=== PATIENT | male | born 1985 | race Two or more races ===

== ENCOUNTER 2019-02-28 18:23 | Inpatient (IN) | payer MEDICARE, OTHER ==
[~2019-02-28] VITALS: Ht 167.6 cm; Wt 71.7 kg
[2019-02-28] MEDS ORDERED: CARV25TA2 PO (18:47)
[2019-02-28] MEDS ORDERED: INSU100V36 SQ (18:47)
[2019-02-28] MEDS ORDERED: ATOR40TA PO (18:47)
[2019-02-28] MEDS ORDERED: CALC667T2 PO (18:47)
[2019-02-28] MEDS ORDERED: HYDR100T27 PO (18:47)
[2019-02-28] MEDS ORDERED: VIT1TABL46 PO (18:47)
[2019-02-28] MEDS ORDERED: FURO-151 PO (18:47)
[2019-02-28] MEDS ORDERED: INSU100I26 SQ (18:47)
[2019-02-28] MEDS ORDERED: CHOL100045 PO (18:47)
[2019-02-28] MEDS ORDERED: AMLO5TAB9 PO (18:47)
[2019-02-28] MEDS ORDERED: CITR30SO6 PO (18:47)
[2019-02-28] MEDS ORDERED: SERT100T PO (18:47)
[2019-02-28] MEDS ORDERED: PANT40TA4 PO (18:47)
[2019-02-28] MEDS ORDERED: SILD50TA PO (18:48)
[2019-02-28] MEDS ORDERED: ASPIRIN 81 MG TAB.CHEW PO ONE (19:15)
[2019-02-28] MEDS ORDERED: NITROGLYCERIN 0.4 MG/TAB BOTTLE SL ONE ×2 (19:15→19:16)
[2019-02-28 19:16] LABS: BASOPHILS % (AUTO) 0.3 % (0.0-2.0); EOSINOPHILS % (AUTO) 0.3 % (0.0-7.0); HEMATOCRIT 41.4 % (36.7-47.1); HEMOGLOBIN 13.5 g/dL (12.5-16.3); LYMPHOCYTES # (AUTO) 1.3 K/uL (20.0-40.0); LYMPHOCYTES % (AUTO) 16.9 % (20.5-51.5); MEAN CORPUSCULAR HGB CONC 33 g/dL (32.5-36.3); MEAN CORPUSCULAR VOLUME 89.3 fL (73.0-96.2); MONOCYTES # (AUTO) 0.3 K/uL (2.0-10.0); MONOCYTES % (AUTO) 4.5 % (0.0-11.0); NEUTROPHILS # (AUTO) 5.8 K/uL (1.8-8.9); PLATELET COUNT (AUTO) 144 K/uL (152-348); RED BLOOD CELL COUNT(AUTO) 4.64 MIL/uL (4.06-5.63); WHITE BLOOD COUNT (AUTO) 7.5 K/uL (3.6-10.2)
[2019-02-28] MEDS ORDERED: ASPIRIN 81 MG TAB.CHEW ONE (19:16)
[2019-02-28 19:21] LABS: CREATININE 5.2 mg/dL (0.6-1.3); POTASSIUM 4.7 mmol/L (3.5-5.1)
--- NOTE | 2019-02-28 19:30 | NUR ---
Dr. Diamond speaking with Dr. Jonathan Mosher.
--- NOTE | 2019-02-28 19:50 | NUR ---
Xray at bedside
--- NOTE | 2019-02-28 20:02 | NUR ---
Pt states he is unable to provide urine due to kidney failure, has dialysis once a year.
--- NOTE | 2019-02-28 20:28 | NUR ---
Called [facility] to page Yue Mcdonald NP.
--- NOTE | 2019-02-28 20:51 | NUR ---
Dr. Diamond on panel call with Yue Mcdonald NP. Pt accepted for admission to [facility], diagnosis: chestpain.
[2019-02-28] MEDS ORDERED: hydrALAZINE HCL 25 MG TABLET PO ONE (21:15)
[2019-02-28] MEDS ORDERED: Z GUARD REMEDY PASTE 57 GM TUBE TOP PRN (21:15)
[2019-02-28] MEDS ORDERED: ACETAMINOPHEN 325 MG TABLET PO PRN (21:15)
[2019-02-28] MEDS ORDERED: MAGNESIUM HYDROXIDE 30 ML LIQUID UDC PO PRN (21:15)
[2019-02-28] MEDS ORDERED: hydrALAZINE HCL 25 MG TABLET ONE (21:21)
--- NOTE | 2019-02-28 21:45 | NUR ---
Report given to Gricelda JEONG Tele.
--- NOTE | 2019-02-28 22:00 | NUR ---
RECEIVED PT IN ER VIA FLAQUITA.DX: HYPERTENSION CRISIS. UNDER THE CARE OF LIVIER MOORE NP. PT IN NO ACUTE DISTRESS. BELONGING LIST DONE. PT BLOOD PRESSURE HIGH. NOTIFY DR YARDAGE CONTROL CLERK. INTERMEDIATE ASSESSMENT DONE. SAFETY AND COMFORT PROVIDED. WILL CONTINUE TO MONITOR.
[2019-02-28 22:19] VITALS: BP 208/112
[2019-02-28] MEDS ORDERED: DEXTROSE 50% 50 ML DISP.SYRIN IV PRN (22:45)
[2019-02-28] MEDS: SEVELAMER CARBONATE 800 MG TABLET PO SCH (23:19)
[2019-02-28] MEDS: CARVEDILOL 25 MG TABLET PO SCH (23:19)
[2019-02-28 23:32] LABS: ALANINE AMINOTRANSFERASE 21 U/L (16-63); ALKALINE PHOSPHATASE 128 U/L (50-136); ASPARTATE AMINOTRANSFERASE 13 U/L (15-37); BILIRUBIN,DIRECT 0.1 mg/dL (0.0-0.2); BILIRUBIN,TOTAL 0.3 mg/dL (0.2-1.0); TOTAL PROTEIN, SERUM 5.7 g/dL (6.4-8.2)
[2019-02-28 23:41] LABS: ACETAMINOPHEN < 2.0 ug/mL (10-30)
[2019-03-01] VITALS (70 sets, daily range): BP systolic 125–213; BP diastolic 59–119
--- NOTE | 2019-03-01 00:15 | NUR ---
PT TRANSFERRED TO CCU. PT RECENT BLOOD PRESSURE WAS 201/100 AND PULSE RATE 76. LIVIER MOORE BUS MECHANIC NOTIFIED. ORDERED CARDENE DRIP. PT IN NO ACUTE DISTRESS. IV INTACT. SAFETY AND COMFORT PROVIDED.
[2019-03-01] MEDS: MORPHINE SULFATE 2 MG/1 ML DISP.SYRIN IV PRN ×3 (01:09→08:21)
[2019-03-01] MEDS ORDERED: NICARDIPINE IN NS 200 ML IV ONE (01:20)
[2019-03-01] MEDS: NICARDIPINE IN NS 200 ML IV PRN ×6 (01:23→18:59)
--- NOTE | 2019-03-01 01:51 | NUR ---
RECEIVED PT FROM [facility] VIA BED, ALERT & ORIENTED X4. R EYE DRSG INTACT & DRY. BP-185/108, WILL START CARDENE DRIP ORDERED. HEP LOCK INTACT & PATENT ON R HAND. ON RM AIR W/ O2 SAT OF 98%. C-SCOPE SR. KEPT HOB ELEVATED 45 DEGREES.
[2019-03-01] MEDS: HYDROCODONE/APAP 5-325MG TABLET PO PRN ×4 (02:32→18:42)
[2019-03-01] MEDS ORDERED: HYDROMORPHONE 1 MG/1 ML DISP.SYRIN IV STA ×2 (03:18→06:26)
--- NOTE | 2019-03-01 03:18 | NUR ---
CALLED Bhupendra DENNEY RE: INCREASED PAIN OF R EYE, SURGICAL SITE W/ ORDER.
--- NOTE | 2019-03-01 04:02 | NUR ---
PT. DOZING AFTER DILAUDID 0.5MG GIVEN.
--- NOTE | 2019-03-01 06:26 | NUR ---
CALLED Bhupendra LOPEZ FOR PAIN OF R EYE W/ ORDER. DILAUDID 0.5MG IVP GIVEN ORDERED.
[2019-03-01 06:35] LABS: BASOPHILS % (AUTO) 0.3 % (0.0-2.0); EOSINOPHILS % (AUTO) 0.3 % (0.0-7.0); HEMATOCRIT 39.4 % (36.7-47.1); HEMOGLOBIN 12.9 g/dL (12.5-16.3); LYMPHOCYTES # (AUTO) 0.9 K/uL (20.0-40.0); MEAN CORPUSCULAR HEMOGLOBIN 28.9 uug (23.8-33.4); MEAN CORPUSCULAR HGB CONC 33 g/dL (32.5-36.3); MEAN CORPUSCULAR VOLUME 88.1 fL (73.0-96.2); MONOCYTES # (AUTO) 0.4 K/uL (2.0-10.0); MONOCYTES % (AUTO) 4.6 % (0.0-11.0); NEUTROPHILS # (AUTO) 8.1 K/uL (1.8-8.9); NEUTROPHILS % (AUTO) 85.8 % (38.5-71.5); PLATELET COUNT (AUTO) 179 K/uL (152-348); RED BLOOD CELL COUNT(AUTO) 4.47 MIL/uL (4.06-5.63); WHITE BLOOD COUNT (AUTO) 9.5 K/uL (3.6-10.2)
[2019-03-01 06:45] LABS: CREATININE 6.1 mg/dL (0.6-1.3); MAGNESIUM 1.8 mg/dL (1.8-2.4); PHOSPHOROUS 4.1 mg/dL (2.5-4.9); POTASSIUM 5.3 mmol/L (3.5-5.1)
[2019-03-01] MEDS: PANTOPRAZOLE SODIUM 40 MG TABLET.DR PO SCH (06:46)
[2019-03-01] MEDS: BLOOD SUGAR DIAGNOSTIC 1 EACH STRIP VI SCH ×4 (08:24→20:37)
[2019-03-01] MEDS: CALCIUM ACETATE 667 MG CAPSULE PO SCH ×3 (08:36→16:59)
[2019-03-01] MEDS: hydrALAZINE HCL 50 MG TABLET PO SCH ×3 (08:38→16:49)
[2019-03-01] MEDS: SERTRALINE HCL 100 MG TABLET PO SCH (08:39)
[2019-03-01] MEDS: AMLODIPINE 5 MG TABLET PO SCH ×2 (08:39→16:50)
[2019-03-01] MEDS: CITRIC ACID/SODIUM CITRATE 30 ML SOLUTION PO SCH (08:40)
[2019-03-01] MEDS: INSULIN REGULAR, HUMAN 300 UNIT/3 ML VIAL SQ PRN ×3 (08:56→17:29)
[2019-03-01] MEDS: FUROSEMIDE 40 MG TABLET PO SCH (09:11)
[2019-03-01] MEDS: CHOLECALCIFEROL 1,000 UNIT TABLET PO SCH (09:12)
[2019-03-01] MEDS: SEVELAMER CARBONATE 800 MG TABLET PO SCH ×3 (09:13→17:00)
[2019-03-01] MEDS: CARVEDILOL 25 MG TABLET PO SCH ×2 (09:13→17:00)
--- NOTE | 2019-03-01 09:26 | NUR ---
Dr. Sultana here to see pt. Full report given. New orders received.
[2019-03-01] MEDS ORDERED: MORPHINE SULFATE 2 MG/1 ML DISP.SYRIN IV PRN (09:45)
[2019-03-01] MEDS: ONDANSETRON 4 MG/2 ML VIAL IV PRN ×2 (10:13→17:17)
[2019-03-01] MEDS: MORPHINE SULFATE 4 MG/1 ML DISP.SYRIN IV PRN ×3 (10:13→21:33)
[2019-03-01] MEDS ORDERED: TRAVOPROST 0.004% OPHT DROP 2.5 ML BOTTLE RIGHTEYE SCH (11:15)
[2019-03-01] MEDS ORDERED: HOME MED MISCELLANEOUS XX SCH (11:15)
[2019-03-01] MEDS: LATANOPROST OPHT DROP 2.5 ML BOTTLE RIGHTEYE SCH (12:52)
[2019-03-01] MEDS: BRIMONIDINE 0.2% OPHT DROP 10 ML BOTTLE RIGHTEYE SCH ×2 (13:10→16:57)
[2019-03-01] MEDS ORDERED: HYDROMORPHONE 2 MG/1 ML DISP.SYRIN IV ONE (13:15)
--- NOTE | 2019-03-01 13:32 | NUR ---
Spoke with AURE Turner on the telephone. Full report given. New orders received and carried out.
--- NOTE | 2019-03-01 14:10 | NUR ---
US tech here to see pt for 2D Echocardiogram.
[2019-03-01] MEDS ORDERED: OFLO5DRO RIGHTEYE (16:12)
[2019-03-01] MEDS ORDERED: PRED5DRO16 RIGHTEYE (16:14)
[2019-03-01] MEDS ORDERED: ATRO10DR RIGHTEYE (16:17)
[2019-03-01] MEDS ORDERED: LATA2.5D7 RIGHTEYE (16:18)
[2019-03-01] MEDS ORDERED: NETA2.5D RIGHTEYE (16:20)
[2019-03-01] MEDS ORDERED: BRIM10DR6 RIGHTEYE (16:21)
[2019-03-01] MEDS ORDERED: DORZ10DR13 RIGHTEYE (16:22)
[2019-03-01] MEDS: ATROPINE SULFATE 1% OPHT DROP 2 ML RIGHTEYE SCH (16:57)
[2019-03-01] MEDS: prednisoLONE ACET 1% OPHT DROP 5 ML BOTTLE RIGHTEYE SCH ×2 (16:58→20:49)
[2019-03-01] MEDS: OFLOXACIN 0.3% RIGHTEYE SCH ×2 (17:03→20:49)
[2019-03-01] MEDS: OPTH RIGHTEYE SCH ×2 (17:03→20:49)
--- NOTE | 2019-03-01 18:46 | NUR ---
Dr. Mosher (Eye MD) here to see pt. Full report given. Pt okay to remove eye patch and re-apply prn per .
--- NOTE | 2019-03-01 19:02 | NUR ---
cook chill technician here to see pt for dialysis treatment.
--- NOTE | 2019-03-01 20:00 | NUR ---
RECEIVED PT. ON HEMODIALYSIS IN PROGRESS. CARDENE DRIP IS OFF THIS TIME.WATCHED V/S CLOSELY. ON RM AIR W/ O2 SAT OF 98%. IV SITES ON R HAND & R FA INTACT & PATENT. PERMA CATH INTACT ON R UPPER CHEST. LFA AV SHUNT W/ GOOD BRUIT. DR MENCHACA EYE DOCTOR WAS HERE FEW MINS AGO. NOT IN ANY DISTRESS.
[2019-03-01] MEDS: ATORVASTATIN 40 MG TABLET PO SCH (20:48)
[2019-03-01] MEDS: DORZOLAMIDE/TIMOLOL OPHT DROP 10 ML BOTTLE RIGHTEYE SCH (20:50)
[2019-03-01] MEDS: NETARSUDIL 0.02% RIGHTEYE SCH (20:53)
--- NOTE | 2019-03-01 21:00 | NUR ---
HEMODIALYSIS DONE REMOVED 2500CC OF FLUIDS.
--- NOTE | 2019-03-01 22:03 | NUR ---
MEDICATED W/ MORPHINE SULFATE 4MG FOR R EYE PAIN SCALE 8/10.
--- NOTE | 2019-03-01 22:30 | NUR ---
MINIMAL ASSISTANCE GIVEN FOR HS CARE. ORAL CARE DONE. REPOSITIONED SELF FOR COMFORTS.
[2019-03-02] VITALS (58 sets, daily range): BP systolic 118–196; BP diastolic 53–113
[2019-03-02] MEDS: HYDROCODONE/APAP 5-325MG TABLET PO PRN ×2 (00:38→11:07)
[2019-03-02] MEDS: NICARDIPINE IN NS 200 ML IV PRN ×4 (00:43→11:10)
[2019-03-02] MEDS: MORPHINE SULFATE 4 MG/1 ML DISP.SYRIN IV PRN ×5 (03:16→22:28)
--- NOTE | 2019-03-02 04:30 | NUR ---
AM CARE DONE. ORAL CARE DONE. REQUIRES MINIMAL ASSISTANCE.
[2019-03-02] MEDS: ONDANSETRON 4 MG/2 ML VIAL IV PRN (05:11)
--- NOTE | 2019-03-02 05:11 | NUR ---
HAD AN EMESIS OF FOOD PARTICLES & NAUSEOUS, MEDICATED W/ ZOFRAN 4MG IVP ORDERED..
[2019-03-02 05:15] LABS: CREATININE 5.9 mg/dL (0.6-1.3); MAGNESIUM 1.7 mg/dL (1.8-2.4); PHOSPHOROUS 3.3 mg/dL (2.5-4.9); POTASSIUM 4.7 mmol/L (3.5-5.1)
[2019-03-02 05:17] LABS: BASOPHILS % (AUTO) 0.3 % (0.0-2.0); EOSINOPHILS % (AUTO) 0.4 % (0.0-7.0); HEMATOCRIT 40.7 % (36.7-47.1); HEMOGLOBIN 13.4 g/dL (12.5-16.3); LYMPHOCYTES % (AUTO) 11.5 % (20.5-51.5); MEAN CORPUSCULAR HEMOGLOBIN 28.8 uug (23.8-33.4); MEAN CORPUSCULAR HGB CONC 33 g/dL (32.5-36.3); MEAN CORPUSCULAR VOLUME 87.9 fL (73.0-96.2); MONOCYTES # (AUTO) 0.5 K/uL (2.0-10.0); MONOCYTES % (AUTO) 5.2 % (0.0-11.0); NEUTROPHILS # (AUTO) 7.4 K/uL (1.8-8.9); NEUTROPHILS % (AUTO) 82.6 % (38.5-71.5); PLATELET COUNT (AUTO) 159 K/uL (152-348); RED BLOOD CELL COUNT(AUTO) 4.63 MIL/uL (4.06-5.63)
--- NOTE | 2019-03-02 06:00 | NUR ---
RESTING QUITELY. NOT IN ANY DISTRESS.
[2019-03-02] MEDS: PANTOPRAZOLE SODIUM 40 MG TABLET.DR PO SCH (06:20)
[2019-03-02] MEDS: BLOOD SUGAR DIAGNOSTIC 1 EACH STRIP VI SCH ×4 (06:54→20:30)
[2019-03-02 07:09] LABS: HEPATITIS B SURFACE AB Reactive (.); HEPATITIS B SURFACE AG Negative (Negative)
[2019-03-02] MEDS: hydrALAZINE HCL 50 MG TABLET PO SCH ×3 (07:57→16:27)
[2019-03-02] MEDS: SEVELAMER CARBONATE 800 MG TABLET PO SCH ×3 (07:58→17:03)
[2019-03-02] MEDS: AMLODIPINE 5 MG TABLET PO SCH ×2 (07:58→16:28)
[2019-03-02] MEDS: CHOLECALCIFEROL 1,000 UNIT TABLET PO SCH (07:59)
[2019-03-02] MEDS: FUROSEMIDE 40 MG TABLET PO SCH (07:59)
[2019-03-02] MEDS: CALCIUM ACETATE 667 MG CAPSULE PO SCH ×3 (08:00→17:02)
[2019-03-02] MEDS: SERTRALINE HCL 100 MG TABLET PO SCH (08:00)
[2019-03-02] MEDS: CARVEDILOL 25 MG TABLET PO SCH ×2 (08:01→17:03)
[2019-03-02] MEDS: CITRIC ACID/SODIUM CITRATE 30 ML SOLUTION PO SCH (08:02)
[2019-03-02] MEDS: LATANOPROST OPHT DROP 2.5 ML BOTTLE RIGHTEYE SCH (08:07)
[2019-03-02] MEDS: DORZOLAMIDE/TIMOLOL OPHT DROP 10 ML BOTTLE RIGHTEYE SCH ×2 (08:08→20:13)
[2019-03-02] MEDS: prednisoLONE ACET 1% OPHT DROP 5 ML BOTTLE RIGHTEYE SCH ×4 (08:08→20:10)
[2019-03-02] MEDS: ATROPINE SULFATE 1% OPHT DROP 2 ML RIGHTEYE SCH ×2 (08:09→17:20)
[2019-03-02] MEDS: OPTH RIGHTEYE SCH ×4 (08:09→20:10)
[2019-03-02] MEDS: OFLOXACIN 0.3% RIGHTEYE SCH ×4 (08:09→20:10)
[2019-03-02] MEDS: BRIMONIDINE 0.2% OPHT DROP 10 ML BOTTLE RIGHTEYE SCH ×3 (08:09→17:21)
[2019-03-02] MEDS: INSULIN REGULAR, HUMAN 300 UNIT/3 ML VIAL SQ PRN ×4 (08:17→20:30)
[2019-03-02] MEDS ORDERED: LOSARTAN POTASSIUM 50 MG TABLET PO SCH (09:00)
--- NOTE | 2019-03-02 11:00 | NUR ---
Dr. Larry here to see pt. Full report given. New orders received.
--- NOTE | 2019-03-02 11:15 | NUR ---
AURE Mcdonald here to see pt. Full report given. No new orders received.
[2019-03-02] MEDS ORDERED: SODIUM CHLORIDE IV ONE (13:00)
[2019-03-02] MEDS ORDERED: NICARDIPINE IV ONE (13:00)
[2019-03-02] MEDS: CLONIDINE HCL 0.1 MG TABLET PO SCH ×2 (13:08→21:47)
[2019-03-02] MEDS: NORMAL SALINE IV PRN (13:59)
[2019-03-02] MEDS: NICARDIPINE HCL IV PRN (13:59)
[2019-03-02] MEDS: LOSARTAN POTASSIUM 50 MG TABLET PO SCH (16:27)
[2019-03-02] MEDS: ATORVASTATIN 40 MG TABLET PO SCH (20:10)
[2019-03-02] MEDS: NETARSUDIL 0.02% RIGHTEYE SCH (20:11)
--- NOTE | 2019-03-02 20:46 | NUR ---
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
--- NOTE | 2019-03-02 21:00 | NUR ---
due medication given and tolerated ,eye drops administered to the right eye . requested for sandwich he said he cannot take medication with empty stomach .off Cardene drip continue to monitor bp to keep sbp <160 mm/hg .fingerstick done and follow insulin sliding scale .
--- NOTE | 2019-03-02 22:36 | NUR ---
patient verbalized pain to his right eye and headache 8/10 given prn morphine . continue to monitor pain levels and advised to use the call forde . requested jello given 2 jellos .
[2019-03-03] VITALS (77 sets, daily range): BP systolic 125–191; BP diastolic 57–107
--- NOTE | 2019-03-03 | NUR ---
BP 163/88 HR 75 RR 18 given clonidine 0.1 mg po will continue to monitor bp .
--- NOTE | 2019-03-03 02:00 | NUR ---
186/101 map 140 ,started Cardene drip at 2.5 mg to titrate to keep sbp <160 mm/hg.
[2019-03-03] MEDS: NORMAL SALINE IV PRN ×2 (02:04→11:03)
[2019-03-03] MEDS: NICARDIPINE HCL IV PRN ×2 (02:04→11:03)
[2019-03-03] MEDS: MORPHINE SULFATE 4 MG/1 ML DISP.SYRIN IV PRN ×3 (02:10→10:43)
[2019-03-03] MEDS: CLONIDINE HCL 0.1 MG TABLET PO SCH ×3 (05:37→21:46)
[2019-03-03] MEDS: PANTOPRAZOLE SODIUM 40 MG TABLET.DR PO SCH (06:03)
[2019-03-03] MEDS: BLOOD SUGAR DIAGNOSTIC 1 EACH STRIP VI SCH ×4 (07:09→22:31)
[2019-03-03 07:32] LABS: BASOPHILS % (AUTO) 0.5 % (0.0-2.0); EOSINOPHILS % (AUTO) 0.5 % (0.0-7.0); HEMATOCRIT 36.9 % (36.7-47.1); LYMPHOCYTES # (AUTO) 1.5 K/uL (20.0-40.0); MEAN CORPUSCULAR HGB CONC 32 g/dL (32.5-36.3); MEAN CORPUSCULAR VOLUME 89.6 fL (73.0-96.2); MONOCYTES # (AUTO) 0.7 K/uL (2.0-10.0); MONOCYTES % (AUTO) 6.7 % (0.0-11.0); NEUTROPHILS # (AUTO) 7.5 K/uL (1.8-8.9); NEUTROPHILS % (AUTO) 77.3 % (38.5-71.5); PLATELET COUNT (AUTO) 135 K/uL (152-348); RED BLOOD CELL COUNT(AUTO) 4.12 MIL/uL (4.06-5.63); WHITE BLOOD COUNT (AUTO) 9.7 K/uL (3.6-10.2)
[2019-03-03 07:42] LABS: MAGNESIUM 1.6 mg/dL (1.8-2.4); POTASSIUM 5.6 mmol/L (3.5-5.1)
[2019-03-03 07:50] LABS: CREATININE 7.6 mg/dL (0.6-1.3)
[2019-03-03] MEDS: INSULIN REGULAR, HUMAN 300 UNIT/3 ML VIAL SQ PRN ×4 (08:04→22:34)
[2019-03-03] MEDS: hydrALAZINE HCL 50 MG TABLET PO SCH ×3 (08:12→16:41)
[2019-03-03] MEDS: AMLODIPINE 5 MG TABLET PO SCH (08:13)
[2019-03-03] MEDS: LOSARTAN POTASSIUM 50 MG TABLET PO SCH ×2 (08:13→16:40)
[2019-03-03] MEDS: FUROSEMIDE 40 MG TABLET PO SCH (08:14)
[2019-03-03] MEDS: CALCIUM ACETATE 667 MG CAPSULE PO SCH ×3 (08:14→17:24)
[2019-03-03] MEDS: SEVELAMER CARBONATE 800 MG TABLET PO SCH ×3 (08:14→17:24)
[2019-03-03] MEDS: CARVEDILOL 25 MG TABLET PO SCH ×2 (08:16→17:25)
[2019-03-03] MEDS: SERTRALINE HCL 100 MG TABLET PO SCH (08:16)
[2019-03-03] MEDS: CHOLECALCIFEROL 1,000 UNIT TABLET PO SCH (08:16)
[2019-03-03] MEDS: CITRIC ACID/SODIUM CITRATE 30 ML SOLUTION PO SCH (08:17)
[2019-03-03] MEDS: HYDROCODONE/APAP 5-325MG TABLET PO PRN (08:28)
--- NOTE | 2019-03-03 08:29 | NUR ---
c/o severe headache. scale 10. medicated with [place] tablet Addendum: 03/03/19 at 0829 by SARA REN RN Amended: Links added.
[2019-03-03] MEDS: DORZOLAMIDE/TIMOLOL OPHT DROP 10 ML BOTTLE RIGHTEYE SCH ×2 (08:55→22:37)
[2019-03-03] MEDS: BRIMONIDINE 0.2% OPHT DROP 10 ML BOTTLE RIGHTEYE SCH ×3 (08:55→16:42)
[2019-03-03] MEDS: ATROPINE SULFATE 1% OPHT DROP 2 ML RIGHTEYE SCH ×2 (08:56→16:42)
[2019-03-03] MEDS: LATANOPROST OPHT DROP 2.5 ML BOTTLE RIGHTEYE SCH (08:56)
[2019-03-03] MEDS: prednisoLONE ACET 1% OPHT DROP 5 ML BOTTLE RIGHTEYE SCH ×4 (08:57→22:36)
[2019-03-03] MEDS: OFLOXACIN 0.3% RIGHTEYE SCH ×4 (08:57→22:36)
[2019-03-03] MEDS: OPTH RIGHTEYE SCH ×4 (08:57→22:36)
--- NOTE | 2019-03-03 10:43 | NUR ---
medicated for c/o right frontal headache scale 01/04 Addendum: 03/03/19 at 1056 by SARA REN RN Amended: Links added.
--- NOTE | 2019-03-03 11:30 | NUR ---
seen by Dr Willson Cardiology. orders received. [facility] randallia dc/d. will start procrdia and will titrate cardene down as long as BP 160 and below Addendum: 03/03/19 at 1229 by SARA REN RN Amended: Links added. Addendum: 03/03/19 at 1230 by SARA REN RN Amended: Links added.
--- NOTE | 2019-03-03 12:00 | NUR ---
leonie 197, covered with 3 units humulin R SQ Addendum: 03/03/19 at 1230 by SARA REN RN Amended: Links added.
--- NOTE | 2019-03-03 13:00 | NUR ---
seen by AURE Weaver. orders received. Addendum: 03/03/19 at 1407 by SARA REN RN Amended: Links added.
[2019-03-03 13:25] LABS: HEPATITIS B SURFACE AB Reactive (.); HEPATITIS B SURFACE AG Negative (Negative)
--- NOTE | 2019-03-03 14:00 | NUR ---
luis m agrawal down to 2 mg/hr/ see iv speadsheet for clinical values Addendum: 03/03/19 at 1657 by SARA REN RN Amended: Links added.
[2019-03-03] MEDS: HYDROMORPHONE 2 MG/1 ML DISP.SYRIN IV PRN ×2 (14:17→22:40)
--- NOTE | 2019-03-03 14:18 | NUR ---
medicated with dilaudid 2mg IV. for c/o headache right frontal scale 12/05. Morphine was discontinued Addendum: 03/03/19 at 1418 by SARA REN RN Amended: Links added.
--- NOTE | 2019-03-03 14:46 | NUR ---
hemosialysis initiated. Addendum: 03/03/19 at 1446 by SARA REN RN Amended: Links added.
[2019-03-03] MEDS ORDERED: MAGNESIUM OXIDE 400 MG TABLET PO ONE (15:45)
--- NOTE | 2019-03-03 16:24 | NUR ---
leonie 161, covered with 3 units humulin R SQ Addendum: 03/03/19 at 1626 by SARA REN RN Amended: Links added.
--- NOTE | 2019-03-03 17:00 | NUR ---
hemodialysis completed. 3liters of fluids out. Addendum: 03/03/19 at 1755 by SARA REN RN Amended: Linda added. Addendum: 03/03/19 at 1814 by SARA REN RN Amended: Links added.
--- NOTE | 2019-03-03 17:19 | NUR ---
luis m back to 5mg/hr for persistent hypertension Addendum: 03/03/19 at 1719 by SARA REN RN Amended: Links added.
[2019-03-03] MEDS: ONDANSETRON 4 MG/2 ML VIAL IV PRN (17:33)
--- NOTE | 2019-03-03 17:33 | NUR ---
had 1 episode of emesis while eating dinner. medicated with zofran IV. bp 185/88. cardene at 5mg/hr Addendum: 03/03/19 at 1754 by SARA REN RN Amended: Links added. Addendum: 03/03/19 at 1755 by SARA REN RN Amended: Links added. Addendum: 03/03/19 at 1814 by SARA REN RN Amended: Links added.
--- NOTE | 2019-03-03 18:00 | NUR ---
sleeping post emesis. bp now 141/80. dakotaene down to 4 mh/hr Addendum: 03/03/19 at 1814 by SARA REN RN Amended: Links added.
--- NOTE | 2019-03-03 19:20 | NUR ---
Shift report given to Lisa Addendum: 03/03/19 at 1920 by SARA REN RN Amended: Links added.
[2019-03-03] MEDS ORDERED: SODIUM CHLORIDE IV ONE (20:00)
[2019-03-03] MEDS ORDERED: NICARDIPINE IV ONE (20:00)
[2019-03-03] MEDS: ATORVASTATIN 40 MG TABLET PO SCH (21:47)
[2019-03-03] MEDS: NETARSUDIL 0.02% RIGHTEYE SCH (22:37)
[2019-03-03] MEDS ORDERED: NIFEdipine XL 30 MG TABSR PO ONE (22:53)
[2019-03-03] MEDS: NIFEdipine XL 30 MG TABSR PO SCH (22:57)
[2019-03-04] VITALS (76 sets, daily range): BP systolic 120–171; BP diastolic 52–97
[2019-03-04] MEDS: NICARDIPINE HCL IV PRN ×2 (00:48→10:19)
[2019-03-04] MEDS: NORMAL SALINE IV PRN ×2 (00:48→10:19)
[2019-03-04] MEDS: HYDROMORPHONE 2 MG/1 ML DISP.SYRIN IV PRN ×5 (02:45→23:49)
[2019-03-04] MEDS: CLONIDINE HCL 0.1 MG TABLET PO SCH ×3 (06:26→22:07)
[2019-03-04] MEDS: PANTOPRAZOLE SODIUM 40 MG TABLET.DR PO SCH (06:26)
[2019-03-04] MEDS: BLOOD SUGAR DIAGNOSTIC 1 EACH STRIP VI SCH ×4 (07:58→22:20)
--- NOTE | 2019-03-04 08:00 | NUR ---
Report received from ADENIKE Gutierrez.Pt remains awake,alert.Remains on cardene gtt at 5mg/hrto keep SBP <160.Will continue to monitor.
[2019-03-04] MEDS: INSULIN REGULAR, HUMAN 300 UNIT/3 ML VIAL SQ PRN ×4 (08:07→22:23)
[2019-03-04 08:10] LABS: *BILIRUBIN,URIN NEGATIVE (NEGATIVE); *BLOOD, URINE 2+ (NEGATIVE); *CLARITY,URINE CLEAR (CLEAR); *COLOR,URINE YELLOW (YELLOW); *KETONES,URINE NEGATIVE (NEGATIVE); *UROBILINOGEN,URINE 0.2 E.U./dl (NORMAL); LEUKOCYTE ESTERASE ,URINE NEGATIVE (NEGATIVE); NITRITE, URINE NEGATIVE (NEGATIVE); PH,URINE 7.5 (5.0-8.0); UGLUCOSE TRACE (NEGATIVE)
[2019-03-04 08:18] LABS: BACTERIA,URINE FEW /HPF (NONE SEEN); RBC,URINE TNTC /HPF (0-3); SQUAMOUS EPITHELIAL CELL,UR NONE SEEN /HPF (NONE SEEN)
[2019-03-04 08:38] LABS: BASOPHILS # (AUTO) 0.1 K/uL (0.0-8.0); BASOPHILS % (AUTO) 0.6 % (0.0-2.0); EOSINOPHILS # (AUTO) 0.1 K/uL (0.0-0.7); EOSINOPHILS % (AUTO) 0.7 % (0.0-7.0); HEMATOCRIT 40.2 % (36.7-47.1); HEMOGLOBIN 13.1 g/dL (12.5-16.3); LYMPHOCYTES # (AUTO) 1.6 K/uL (20.0-40.0); LYMPHOCYTES % (AUTO) 15.3 % (20.5-51.5); MEAN CORPUSCULAR HGB CONC 33 g/dL (32.5-36.3); MEAN CORPUSCULAR VOLUME 89.3 fL (73.0-96.2); MONOCYTES # (AUTO) 0.7 K/uL (2.0-10.0); MONOCYTES % (AUTO) 6.9 % (0.0-11.0); NEUTROPHILS # (AUTO) 8.2 K/uL (1.8-8.9); NEUTROPHILS % (AUTO) 76.5 % (38.5-71.5); PLATELET COUNT (AUTO) 159 K/uL (152-348); RED BLOOD CELL COUNT(AUTO) 4.51 MIL/uL (4.06-5.63); WHITE BLOOD COUNT (AUTO) 10.7 K/uL (3.6-10.2)
[2019-03-04 08:49] LABS: MAGNESIUM 1.8 mg/dL (1.8-2.4); POTASSIUM 4.8 mmol/L (3.5-5.1)
[2019-03-04] MEDS: ONDANSETRON 4 MG/2 ML VIAL IV PRN (08:54)
[2019-03-04 08:56] LABS: CREATININE 7.7 mg/dL (0.6-1.3)
[2019-03-04] MEDS: hydrALAZINE HCL 50 MG TABLET PO SCH ×3 (08:59→17:30)
[2019-03-04] MEDS: LOSARTAN POTASSIUM 50 MG TABLET PO SCH (09:00)
--- NOTE | 2019-03-04 09:00 | NUR ---
Medicated for nausea with Zofran 4 mg IV.Medicated with Dilaudid 2 mg IV for pain in Right eye.Will continue to monitor.
[2019-03-04] MEDS: NIFEdipine XL 30 MG TABSR PO SCH (09:01)
[2019-03-04] MEDS: SERTRALINE HCL 100 MG TABLET PO SCH (09:02)
[2019-03-04] MEDS: CITRIC ACID/SODIUM CITRATE 30 ML SOLUTION PO SCH (09:03)
[2019-03-04] MEDS: SEVELAMER CARBONATE 800 MG TABLET PO SCH ×3 (09:03→17:34)
[2019-03-04] MEDS: CARVEDILOL 25 MG TABLET PO SCH ×2 (09:03→17:32)
[2019-03-04] MEDS: FUROSEMIDE 40 MG TABLET PO SCH ×2 (09:04→17:30)
[2019-03-04] MEDS: CALCIUM ACETATE 667 MG CAPSULE PO SCH ×3 (09:04→17:34)
[2019-03-04] MEDS: CHOLECALCIFEROL 1,000 UNIT TABLET PO SCH (09:05)
[2019-03-04] MEDS: prednisoLONE ACET 1% OPHT DROP 5 ML BOTTLE RIGHTEYE SCH ×4 (09:06→22:11)
[2019-03-04] MEDS: OPTH RIGHTEYE SCH ×4 (09:07→22:12)
[2019-03-04] MEDS: OFLOXACIN 0.3% RIGHTEYE SCH ×4 (09:07→22:12)
[2019-03-04] MEDS: ATROPINE SULFATE 1% OPHT DROP 2 ML RIGHTEYE SCH ×2 (09:07→17:35)
[2019-03-04] MEDS: DORZOLAMIDE/TIMOLOL OPHT DROP 10 ML BOTTLE RIGHTEYE SCH ×2 (09:07→22:10)
[2019-03-04] MEDS: BRIMONIDINE 0.2% OPHT DROP 10 ML BOTTLE RIGHTEYE SCH ×3 (09:08→17:37)
[2019-03-04] MEDS: LATANOPROST OPHT DROP 2.5 ML BOTTLE RIGHTEYE SCH (09:08)
[2019-03-04] MEDS ORDERED: NIFEdipine XL 60 MG TABSR PO ONE (10:30)
--- NOTE | 2019-03-04 10:30 | NUR ---
Seen,examined by pottery decorator .New orders received.
[2019-03-04] MEDS ORDERED: FUROSEMIDE 40 MG TABLET PO SCH (10:45)
[2019-03-04] MEDS: HYDROCODONE/APAP 5-325MG TABLET PO PRN (12:13)
[2019-03-04] MEDS ORDERED: SODIUM CHLORIDE IV ONE (19:00)
[2019-03-04] MEDS ORDERED: NICARDIPINE IV ONE (19:00)
--- NOTE | 2019-03-04 22:00 | NUR ---
Emily Mccray.Omero. at bedside: requested Cardene gtt off; only if necessary to restart.
[2019-03-04] MEDS: ATORVASTATIN 40 MG TABLET PO SCH (22:07)
[2019-03-04] MEDS: VALSARTAN 160 MG TABLET PO SCH (22:08)
[2019-03-04] MEDS: NETARSUDIL 0.02% RIGHTEYE SCH (22:11)
[2019-03-05] VITALS (26 sets, daily range): BP systolic 124–191; BP diastolic 47–94
[2019-03-05] MEDS: HYDROCODONE/APAP 5-325MG TABLET PO PRN ×2 (02:08→10:42)
[2019-03-05] MEDS: HYDROMORPHONE 2 MG/1 ML DISP.SYRIN IV PRN ×5 (03:49→23:22)
[2019-03-05 05:16] LABS: BASOPHILS % (AUTO) 0.5 % (0.0-2.0); EOSINOPHILS # (AUTO) 0.1 K/uL (0.0-0.7); EOSINOPHILS % (AUTO) 0.7 % (0.0-7.0); HEMATOCRIT 37.4 % (36.7-47.1); HEMOGLOBIN 12.2 g/dL (12.5-16.3); LYMPHOCYTES # (AUTO) 1.5 K/uL (20.0-40.0); LYMPHOCYTES % (AUTO) 16.7 % (20.5-51.5); MEAN CORPUSCULAR HEMOGLOBIN 28.7 uug (23.8-33.4); MEAN CORPUSCULAR HGB CONC 33 g/dL (32.5-36.3); MEAN CORPUSCULAR VOLUME 87.8 fL (73.0-96.2); MONOCYTES # (AUTO) 0.6 K/uL (2.0-10.0); MONOCYTES % (AUTO) 6.3 % (0.0-11.0); NEUTROPHILS % (AUTO) 75.8 % (38.5-71.5); PLATELET COUNT (AUTO) 160 K/uL (152-348); RED BLOOD CELL COUNT(AUTO) 4.26 MIL/uL (4.06-5.63); WHITE BLOOD COUNT (AUTO) 9.2 K/uL (3.6-10.2)
[2019-03-05] MEDS: NORMAL SALINE IV PRN ×2 (05:41→10:25)
[2019-03-05] MEDS: NICARDIPINE HCL IV PRN ×2 (05:41→10:25)
[2019-03-05] MEDS: CLONIDINE HCL 0.1 MG TABLET PO SCH ×3 (06:12→21:18)
[2019-03-05] MEDS: PANTOPRAZOLE SODIUM 40 MG TABLET.DR PO SCH (06:12)
[2019-03-05 06:28] LABS: MAGNESIUM 1.7 mg/dL (1.8-2.4); PHOSPHOROUS 4.6 mg/dL (2.5-4.9); POTASSIUM 5.1 mmol/L (3.5-5.1)
[2019-03-05 06:30] LABS: CREATININE 8.9 mg/dL (0.6-1.3)
--- NOTE | 2019-03-05 08:00 | NUR ---
AURE Mcdonald here to see pt. Full report given. No new orders received.
[2019-03-05] MEDS: hydrALAZINE HCL 50 MG TABLET PO SCH ×3 (08:16→17:17)
[2019-03-05] MEDS: CHOLECALCIFEROL 1,000 UNIT TABLET PO SCH (08:17)
[2019-03-05] MEDS: SERTRALINE HCL 100 MG TABLET PO SCH (08:17)
[2019-03-05] MEDS: CARVEDILOL 25 MG TABLET PO SCH ×2 (08:17→17:07)
[2019-03-05] MEDS: VALSARTAN 160 MG TABLET PO SCH ×2 (08:18→21:07)
[2019-03-05] MEDS: CITRIC ACID/SODIUM CITRATE 30 ML SOLUTION PO SCH (08:18)
[2019-03-05] MEDS: CALCIUM ACETATE 667 MG CAPSULE PO SCH ×3 (08:18→17:08)
[2019-03-05] MEDS: NIFEdipine XL 90 MG TABSR PO SCH (08:19)
[2019-03-05] MEDS: SEVELAMER CARBONATE 800 MG TABLET PO SCH ×3 (08:19→17:08)
[2019-03-05] MEDS: FUROSEMIDE 40 MG TABLET PO SCH ×2 (08:20→17:07)
[2019-03-05] MEDS: BLOOD SUGAR DIAGNOSTIC 1 EACH STRIP VI SCH ×4 (08:30→21:13)
[2019-03-05] MEDS: INSULIN REGULAR, HUMAN 300 UNIT/3 ML VIAL SQ PRN ×4 (08:32→21:14)
[2019-03-05] MEDS: OFLOXACIN 0.3% RIGHTEYE SCH ×4 (08:55→21:06)
[2019-03-05] MEDS: OPTH RIGHTEYE SCH ×4 (08:55→21:06)
[2019-03-05] MEDS: BRIMONIDINE 0.2% OPHT DROP 10 ML BOTTLE RIGHTEYE SCH ×3 (08:56→17:19)
[2019-03-05] MEDS: prednisoLONE ACET 1% OPHT DROP 5 ML BOTTLE RIGHTEYE SCH ×4 (08:56→21:07)
[2019-03-05] MEDS: LATANOPROST OPHT DROP 2.5 ML BOTTLE RIGHTEYE SCH ×2 (08:56→17:19)
[2019-03-05] MEDS: ATROPINE SULFATE 1% OPHT DROP 2 ML RIGHTEYE SCH ×2 (08:56→17:18)
[2019-03-05] MEDS: DORZOLAMIDE/TIMOLOL OPHT DROP 10 ML BOTTLE RIGHTEYE SCH ×2 (08:57→21:07)
[2019-03-05] MEDS ORDERED: NIFEdipine XL 30 MG TABSR PO SCH (09:00)
[2019-03-05] MEDS ORDERED: NICARDIPINE IV ONE (10:00)
[2019-03-05] MEDS ORDERED: SODIUM CHLORIDE IV ONE (10:00)
--- NOTE | 2019-03-05 18:23 | NUR ---
Dr. Carty (Pain MD) here to see pt. Full report given. New orders received.
--- NOTE | 2019-03-05 20:00 | NUR ---
dog control officer at bedside patient is schedule for HD today .patient aaaox4 maex4 . room air no respiratory distress noted ,breathing even and unlabored .off nicardipine drip . bp <160 mm/hg .will continue to monitor bp .
[2019-03-05] MEDS: ACETAMINOPHEN 325 MG TABLET PO SCH (21:05)
[2019-03-05] MEDS: ATORVASTATIN 40 MG TABLET PO SCH (21:05)
[2019-03-05] MEDS: NETARSUDIL 0.02% RIGHTEYE SCH (21:06)
--- NOTE | 2019-03-05 22:00 | NUR ---
3000 fluid removal from HD.patient tolerated the procedure .
[2019-03-05] MEDS: HYDROCODONE/APAP 10-325 MG TABLET PO PRN (22:01)
--- NOTE | 2019-03-05 23:00 | NUR ---
patient sister came and visited him brought food from home .
[2019-03-06] VITALS (89 sets, daily range): BP systolic 110–203; BP diastolic 68–110
[2019-03-06] MEDS: ONDANSETRON 4 MG/2 ML VIAL IV PRN ×2 (00:09→10:54)
--- NOTE | 2019-03-06 00:09 | NUR ---
patient called ,patient vomited about 500 ml of food particle and solid food undigested food given Zofran prn for n/v and ice chips .
--- NOTE | 2019-03-06 00:35 | NUR ---
bp 171/93 after he vomited will continue to monitor bp .
[2019-03-06] MEDS: NICARDIPINE HCL IV PRN ×4 (02:07→19:44)
[2019-03-06] MEDS: NORMAL SALINE IV PRN ×4 (02:07→19:44)
[2019-03-06] MEDS: HYDROCODONE/APAP 5-325MG TABLET PO PRN (02:14)
[2019-03-06] MEDS: ACETAMINOPHEN 325 MG TABLET PO SCH ×4 (02:15→17:46)
[2019-03-06] MEDS: HYDROMORPHONE 2 MG/1 ML DISP.SYRIN IV PRN ×5 (03:21→20:40)
[2019-03-06 05:29] LABS: MAGNESIUM 1.8 mg/dL (1.8-2.4); POTASSIUM 5.3 mmol/L (3.5-5.1)
[2019-03-06 05:46] LABS: CREATININE 7.7 mg/dL (0.6-1.3)
[2019-03-06 05:47] LABS: BASOPHILS # (AUTO) 0.1 K/uL (0.0-8.0); BASOPHILS % (AUTO) 0.6 % (0.0-2.0); EOSINOPHILS % (AUTO) 0.4 % (0.0-7.0); HEMATOCRIT 37.8 % (36.7-47.1); HEMOGLOBIN 12.3 g/dL (12.5-16.3); LYMPHOCYTES # (AUTO) 1.4 K/uL (20.0-40.0); LYMPHOCYTES % (AUTO) 12.6 % (20.5-51.5); MEAN CORPUSCULAR HEMOGLOBIN 28.7 uug (23.8-33.4); MEAN CORPUSCULAR HGB CONC 33 g/dL (32.5-36.3); MONOCYTES # (AUTO) 0.7 K/uL (2.0-10.0); MONOCYTES % (AUTO) 6.2 % (0.0-11.0); NEUTROPHILS # (AUTO) 8.8 K/uL (1.8-8.9); NEUTROPHILS % (AUTO) 80.2 % (38.5-71.5)
[2019-03-06] MEDS: CLONIDINE HCL 0.1 MG TABLET PO SCH ×2 (06:25→13:02)
[2019-03-06] MEDS: PANTOPRAZOLE SODIUM 40 MG TABLET.DR PO SCH (06:25)
[2019-03-06] MEDS: BLOOD SUGAR DIAGNOSTIC 1 EACH STRIP VI SCH ×4 (06:59→21:00)
[2019-03-06 07:28] LABS: PLATELET COUNT (AUTO) 162 K/uL (152-348)
--- NOTE | 2019-03-06 07:30 | NUR ---
Recieved pt lying in bed, awake , alert and orientedx3. Medicated with Dilaudid for c/o headache level 10. No nausea or vomiting. 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 Cornea is blood red and pupils non reactive to light and accommodation. Pt moves all extremeties without any problem. SBP is very labile. Right arm is swollen, IV site is patent with good blood return.
[2019-03-06] MEDS ORDERED: SODIUM CHLORIDE IV ONE (08:00)
[2019-03-06] MEDS ORDERED: NICARDIPINE IV ONE (08:00)
[2019-03-06] MEDS: HYDROCODONE/APAP 10-325 MG TABLET PO PRN ×2 (08:12→21:30)
[2019-03-06] MEDS: CALCIUM ACETATE 667 MG CAPSULE PO SCH ×3 (08:13→12:58)
[2019-03-06] MEDS: CARVEDILOL 25 MG TABLET PO SCH ×2 (08:13→17:44)
[2019-03-06] MEDS: SEVELAMER CARBONATE 800 MG TABLET PO SCH ×3 (08:14→12:58)
[2019-03-06] MEDS: FUROSEMIDE 40 MG TABLET PO SCH ×2 (09:19→17:44)
[2019-03-06] MEDS: CHOLECALCIFEROL 1,000 UNIT TABLET PO SCH (09:19)
[2019-03-06] MEDS: CITRIC ACID/SODIUM CITRATE 30 ML SOLUTION PO SCH (09:19)
[2019-03-06] MEDS: VALSARTAN 160 MG TABLET PO SCH ×2 (09:20→20:43)
[2019-03-06] MEDS: NIFEdipine XL 90 MG TABSR PO SCH (09:21)
[2019-03-06] MEDS: SERTRALINE HCL 100 MG TABLET PO SCH (09:21)
[2019-03-06] MEDS: BRIMONIDINE 0.2% OPHT DROP 10 ML BOTTLE RIGHTEYE SCH ×3 (09:23→17:44)
[2019-03-06] MEDS: prednisoLONE ACET 1% OPHT DROP 5 ML BOTTLE RIGHTEYE SCH ×4 (09:23→20:44)
[2019-03-06] MEDS: DORZOLAMIDE/TIMOLOL OPHT DROP 10 ML BOTTLE RIGHTEYE SCH ×2 (09:23→20:44)
[2019-03-06] MEDS: OFLOXACIN 0.3% RIGHTEYE SCH ×4 (09:24→20:45)
[2019-03-06] MEDS: OPTH RIGHTEYE SCH ×4 (09:24→20:45)
[2019-03-06] MEDS: ATROPINE SULFATE 1% OPHT DROP 2 ML RIGHTEYE SCH ×2 (09:27→17:44)
[2019-03-06] MEDS: hydrALAZINE HCL 50 MG TABLET PO SCH ×3 (09:27→17:43)
--- NOTE | 2019-03-06 11:00 | NUR ---
Pt c/o nausea with emeses moderate amount. Medicated with Zofran 4mg slow IVP.
[2019-03-06] MEDS: INSULIN REGULAR, HUMAN 300 UNIT/3 ML VIAL SQ PRN (13:09)
[2019-03-06] MEDS ORDERED: CLONIDINE HCL 0.1 MG TABLET PO SCH (14:00)
[2019-03-06] MEDS: CLONIDINE HCL 0.2 MG TABLET PO SCH ×2 (15:14→21:30)
--- NOTE | 2019-03-06 16:30 | NUR ---
Unable to use the accucheck machine at this time.
--- NOTE | 2019-03-06 18:00 | NUR ---
IVF on the right FA appears swollen and infiltrated. Midline IV access is inserted by the PICC line nurse as ordered.
--- NOTE | 2019-03-06 19:30 | NUR ---
rounds made patient in bed .aaox4, breathing even and unlabored on room air.on Cardene drip to follow protocol to keep sbp <160 mm/hg .continue to monitor v/s q15 minutes .refer to spreadsheet .
--- NOTE | 2019-03-06 20:40 | NUR ---
prn Dilaudid given c/o per patient request patient verbalized pain to the right eye and headache .see medication list .
[2019-03-06] MEDS: ATORVASTATIN 40 MG TABLET PO SCH (20:44)
[2019-03-06] MEDS: NETARSUDIL 0.02% RIGHTEYE SCH (20:46)
--- NOTE | 2019-03-06 21:00 | NUR ---
fingerstick not done machine not available in whole hospital .
[2019-03-07] VITALS (93 sets, daily range): BP systolic 120–188; BP diastolic 55–114
[2019-03-07] MEDS: NICARDIPINE HCL IV PRN ×5 (00:07→18:00)
[2019-03-07] MEDS: NORMAL SALINE IV PRN ×5 (00:07→18:00)
[2019-03-07] MEDS: HYDROMORPHONE 2 MG/1 ML DISP.SYRIN IV PRN ×6 (00:39→20:09)
[2019-03-07] MEDS: ACETAMINOPHEN 325 MG TABLET PO SCH ×3 (03:03→17:39)
[2019-03-07 05:12] LABS: BILIRUBIN,TOTAL 0.3 mg/dL (0.2-1.0); MAGNESIUM 1.6 mg/dL (1.8-2.4); PHOSPHOROUS 3.9 mg/dL (2.5-4.9); POTASSIUM 5.7 mmol/L (3.5-5.1); TOTAL PROTEIN, SERUM 5.3 g/dL (6.4-8.2)
[2019-03-07] MEDS: CLONIDINE HCL 0.2 MG TABLET PO SCH ×2 (06:15→13:49)
[2019-03-07] MEDS: PANTOPRAZOLE SODIUM 40 MG TABLET.DR PO SCH (06:22)
[2019-03-07] MEDS: HYDROCODONE/APAP 10-325 MG TABLET PO PRN (06:24)
--- NOTE | 2019-03-07 07:30 | NUR ---
Recieved pt sound asleep in bed but easily arousable. Pt is very pleasant, orientex3.
[2019-03-07] MEDS ORDERED: NICARDIPINE IV ONE (07:40)
[2019-03-07] MEDS ORDERED: SODIUM CHLORIDE IV ONE (07:40)
--- NOTE | 2019-03-07 08:00 | NUR ---
SBP is very labile. Cardene drip is infusing via right upper arm at 10mg/hr. HR is SR, no ectopy.
--- NOTE | 2019-03-07 08:00 | NUR ---
C/O headache and pain oh his right eye level 10. Meedicated with Dilauded 2mg slow IVP as ordered and pt gets relieved. Sleeping on and off. Right arm is still swollen +2-3, skin is warm to touch with good radial pulses. Elevated the rt arm on pillows.
[2019-03-07] MEDS: CALCIUM ACETATE 667 MG CAPSULE PO SCH ×3 (08:50→17:35)
[2019-03-07] MEDS: SEVELAMER CARBONATE 800 MG TABLET PO SCH ×3 (08:50→17:35)
[2019-03-07] MEDS: CARVEDILOL 25 MG TABLET PO SCH ×2 (08:51→17:36)
[2019-03-07] MEDS: hydrALAZINE HCL 50 MG TABLET PO SCH ×3 (08:52→17:00)
[2019-03-07] MEDS: prednisoLONE ACET 1% OPHT DROP 5 ML BOTTLE RIGHTEYE SCH ×4 (09:03→20:17)
[2019-03-07] MEDS: DORZOLAMIDE/TIMOLOL OPHT DROP 10 ML BOTTLE RIGHTEYE SCH ×2 (09:03→20:18)
[2019-03-07] MEDS: OPTH RIGHTEYE SCH ×4 (09:03→20:17)
[2019-03-07] MEDS: OFLOXACIN 0.3% RIGHTEYE SCH ×4 (09:03→20:17)
[2019-03-07] MEDS: ATROPINE SULFATE 1% OPHT DROP 2 ML RIGHTEYE SCH ×2 (09:03→17:03)
[2019-03-07] MEDS: BRIMONIDINE 0.2% OPHT DROP 10 ML BOTTLE RIGHTEYE SCH ×3 (09:03→17:02)
[2019-03-07] MEDS: LATANOPROST OPHT DROP 2.5 ML BOTTLE RIGHTEYE SCH (09:04)
[2019-03-07] MEDS: BLOOD SUGAR DIAGNOSTIC 1 EACH STRIP VI SCH ×4 (09:20→20:19)
--- NOTE | 2019-03-07 09:30 | NUR ---
Rea and examined by [id number] LIGHTING FIXTURES DECORATOR and informed him pf pt's swollen right arm with new order.
[2019-03-07] MEDS: CITRIC ACID/SODIUM CITRATE 30 ML SOLUTION PO SCH (09:45)
[2019-03-07] MEDS: SERTRALINE HCL 100 MG TABLET PO SCH (09:45)
[2019-03-07] MEDS: CHOLECALCIFEROL 1,000 UNIT TABLET PO SCH (09:45)
[2019-03-07] MEDS: NIFEdipine XL 90 MG TABSR PO SCH (09:46)
[2019-03-07] MEDS: VALSARTAN 160 MG TABLET PO SCH ×2 (09:46→20:16)
[2019-03-07] MEDS: FUROSEMIDE 40 MG TABLET PO SCH ×2 (09:46→17:00)
[2019-03-07 10:02] LABS: BASOPHILS % (AUTO) 0.6 % (0.0-2.0); EOSINOPHILS % (AUTO) 0.4 % (0.0-7.0); HEMATOCRIT 35.3 % (36.7-47.1); HEMOGLOBIN 11.4 g/dL (12.5-16.3); LYMPHOCYTES % (AUTO) 14.1 % (20.5-51.5); MEAN CORPUSCULAR HEMOGLOBIN 29.1 uug (23.8-33.4); MEAN CORPUSCULAR HGB CONC 32 g/dL (32.5-36.3); MEAN CORPUSCULAR VOLUME 89.7 fL (73.0-96.2); MONOCYTES # (AUTO) 0.7 K/uL (2.0-10.0); MONOCYTES % (AUTO) 9.5 % (0.0-11.0); NEUTROPHILS # (AUTO) 5.5 K/uL (1.8-8.9); NEUTROPHILS % (AUTO) 75.4 % (38.5-71.5); PLATELET COUNT (AUTO) 126 K/uL (152-348); RED BLOOD CELL COUNT(AUTO) 3.94 MIL/uL (4.06-5.63); WHITE BLOOD COUNT (AUTO) 7.2 K/uL (3.6-10.2)
[2019-03-07] MEDS: INSULIN REGULAR, HUMAN 300 UNIT/3 ML VIAL SQ PRN (10:10)
--- NOTE | 2019-03-07 11:30 | NUR ---
Unable to do accu check, machine is down. Pt eating poorly.
[2019-03-07] MEDS: MAGNESIUM SULFATE/D5W 100 ML IV SCH ×2 (12:31→13:51)
[2019-03-07] MEDS: DOXAZOSIN 2 MG TABLET PO SCH ×2 (12:32→20:17)
[2019-03-07] MEDS: ONDANSETRON 4 MG/2 ML VIAL IV PRN (12:36)
--- NOTE | 2019-03-07 14:00 | NUR ---
Pt feels nauseus and has small emesis. Medicated with Zofran 4mg slow IVP
--- NOTE | 2019-03-07 14:50 | NUR ---
Venous doppler on the right arm done at the bedside as ordered.
--- NOTE | 2019-03-07 15:20 | NUR ---
Notified Ministerio LOONEY of pts Duplex exam. No orders made.
--- NOTE | 2019-03-07 17:00 | NUR ---
Blood pressure medications not given because pt is going to have a HD at 1800.
--- NOTE | 2019-03-07 18:10 | NUR ---
Brian and Ania refused by pt, feeling nauseous. HD is started. Cardene drip in progress at 5mg/hr. SBP is holding.
--- NOTE | 2019-03-07 20:00 | NUR ---
tolerated HEMODIALYSIS with fluid removal of 3000 ml .
[2019-03-07] MEDS: ATORVASTATIN 40 MG TABLET PO SCH (20:16)
[2019-03-07] MEDS: NETARSUDIL 0.02% RIGHTEYE SCH (20:18)
[2019-03-07] MEDS: CLONIDINE HCL 0.3 MG TABLET PO SCH (21:14)
[2019-03-07] MEDS ORDERED: CLONIDINE HCL 0.2 MG TABLET PO SCH (22:00)
--- NOTE | 2019-03-07 23:30 | NUR ---
patient wants to bath self provided . soap and water and wash cloth patient able to cleaned self changed soiled linens and gown . oral care done by patient .
[2019-03-08] VITALS (90 sets, daily range): BP systolic 117–222; BP diastolic 38–132
--- NOTE | 2019-03-08 | NUR ---
patient still bathing self at bedside provided warm water and wash cloth and oral care kit .
--- NOTE | 2019-03-08 | NUR ---
given pain medication as requested Dilaudid and given Zofran for n/v. see emar .
[2019-03-08] MEDS: ONDANSETRON 4 MG/2 ML VIAL IV PRN ×2 (00:44→16:20)
[2019-03-08] MEDS: HYDROMORPHONE 2 MG/1 ML DISP.SYRIN IV PRN ×6 (00:44→21:57)
[2019-03-08] MEDS: NICARDIPINE HCL IV PRN ×6 (00:56→23:57)
[2019-03-08] MEDS: NORMAL SALINE IV PRN ×6 (00:56→23:57)
[2019-03-08] MEDS: ACETAMINOPHEN 325 MG TABLET PO SCH ×3 (02:15→18:10)
[2019-03-08 05:12] LABS: BASOPHILS % (AUTO) 0.6 % (0.0-2.0); EOSINOPHILS % (AUTO) 0.1 % (0.0-7.0); HEMATOCRIT 34.1 % (36.7-47.1); HEMOGLOBIN 11.2 g/dL (12.5-16.3); LYMPHOCYTES # (AUTO) 0.9 K/uL (20.0-40.0); LYMPHOCYTES % (AUTO) 13.8 % (20.5-51.5); MEAN CORPUSCULAR HEMOGLOBIN 28.6 uug (23.8-33.4); MEAN CORPUSCULAR HGB CONC 33 g/dL (32.5-36.3); MEAN CORPUSCULAR VOLUME 87.1 fL (73.0-96.2); MONOCYTES # (AUTO) 0.6 K/uL (2.0-10.0); MONOCYTES % (AUTO) 8.9 % (0.0-11.0); NEUTROPHILS # (AUTO) 5.1 K/uL (1.8-8.9); NEUTROPHILS % (AUTO) 76.6 % (38.5-71.5); PLATELET COUNT (AUTO) 115 K/uL (152-348); RED BLOOD CELL COUNT(AUTO) 3.92 MIL/uL (4.06-5.63); WHITE BLOOD COUNT (AUTO) 6.7 K/uL (3.6-10.2)
[2019-03-08 05:44] LABS: MAGNESIUM 2.1 mg/dL (1.8-2.4); PHOSPHOROUS 3.9 mg/dL (2.5-4.9); POTASSIUM 5.5 mmol/L (3.5-5.1)
[2019-03-08 05:50] LABS: CREATININE 8.1 mg/dL (0.6-1.3)
[2019-03-08] MEDS: CLONIDINE HCL 0.3 MG TABLET PO SCH ×3 (06:05→21:56)
[2019-03-08] MEDS: PANTOPRAZOLE SODIUM 40 MG TABLET.DR PO SCH (06:05)
--- NOTE | 2019-03-08 06:50 | NUR ---
SPOKED TO PRATIMA FORMAN WITH REGARDS TO AM LABS BMP K+ 5.5 AND BUN AND CREATININE WITH NO NEW ORDERS .
[2019-03-08] MEDS ORDERED: SODIUM CHLORIDE IV ONE (07:25)
[2019-03-08] MEDS ORDERED: NICARDIPINE IV ONE (07:25)
[2019-03-08] MEDS: BLOOD SUGAR DIAGNOSTIC 1 EACH STRIP VI SCH ×4 (07:47→20:35)
[2019-03-08] MEDS: hydrALAZINE HCL 50 MG TABLET PO SCH ×3 (08:23→17:40)
[2019-03-08] MEDS: CALCIUM ACETATE 667 MG CAPSULE PO SCH ×3 (08:24→18:08)
[2019-03-08] MEDS: NIFEdipine XL 90 MG TABSR PO SCH (08:25)
[2019-03-08] MEDS: CHOLECALCIFEROL 1,000 UNIT TABLET PO SCH (08:25)
[2019-03-08] MEDS: SERTRALINE HCL 100 MG TABLET PO SCH (08:25)
[2019-03-08] MEDS: CITRIC ACID/SODIUM CITRATE 30 ML SOLUTION PO SCH (08:26)
[2019-03-08] MEDS: SEVELAMER CARBONATE 800 MG TABLET PO SCH ×3 (08:26→18:10)
[2019-03-08] MEDS: CARVEDILOL 25 MG TABLET PO SCH ×2 (08:27→18:08)
[2019-03-08] MEDS: VALSARTAN 160 MG TABLET PO SCH ×2 (08:27→20:23)
[2019-03-08] MEDS: FUROSEMIDE 40 MG TABLET PO SCH ×2 (08:27→17:34)
[2019-03-08] MEDS: OPTH RIGHTEYE SCH ×4 (08:28→20:27)
[2019-03-08] MEDS: prednisoLONE ACET 1% OPHT DROP 5 ML BOTTLE RIGHTEYE SCH ×4 (08:28→20:26)
[2019-03-08] MEDS: OFLOXACIN 0.3% RIGHTEYE SCH ×4 (08:28→20:27)
[2019-03-08] MEDS: BRIMONIDINE 0.2% OPHT DROP 10 ML BOTTLE RIGHTEYE SCH ×3 (08:29→17:38)
[2019-03-08] MEDS: DORZOLAMIDE/TIMOLOL OPHT DROP 10 ML BOTTLE RIGHTEYE SCH ×2 (08:29→20:27)
[2019-03-08] MEDS: LATANOPROST OPHT DROP 2.5 ML BOTTLE RIGHTEYE SCH (08:29)
[2019-03-08] MEDS: ATROPINE SULFATE 1% OPHT DROP 2 ML RIGHTEYE SCH ×2 (08:30→17:57)
--- NOTE | 2019-03-08 10:30 | NUR ---
Cardiology services, Dr. Lorrie Valderrama in the unit to see and examine patient full report given orders received and implemented, see order hx.
[2019-03-08] MEDS: INSULIN REGULAR, HUMAN 300 UNIT/3 ML VIAL SQ PRN ×3 (11:17→20:37)
[2019-03-08] MEDS: MINOXIDIL 2.5 MG TABLET PO SCH ×2 (12:13→20:25)
--- NOTE | 2019-03-08 13:55 | NUR ---
Nephrology services, Dr. Marquez in the unit to see and examine patient. See order hx.
[2019-03-08] MEDS: HYDROCODONE/APAP 10-325 MG TABLET PO PRN (15:06)
--- NOTE | 2019-03-08 16:23 | NUR ---
Mook Rodriguez in the unit to see and examine patient. At this time patient with an episode of nausea and vomiting.
--- NOTE | 2019-03-08 20:00 | NUR ---
RECEIVED PT ALERT & ORIENTED X4, DENIES PAIN THIS TIME. ON RM AIR W/ O2 SAT OF 98%. ON CARDENE DRIP @ 3MG/HR VIA WAI MIDLINE. NOT IN ANY DISTRESS.
[2019-03-08] MEDS: DOXAZOSIN 2 MG TABLET PO SCH (20:24)
[2019-03-08] MEDS: ATORVASTATIN 40 MG TABLET PO SCH (20:26)
[2019-03-08] MEDS: NETARSUDIL 0.02% RIGHTEYE SCH (20:26)
--- NOTE | 2019-03-08 23:00 | NUR ---
REFUSED HS CARE. REPOSITIONED SELF.
[2019-03-09] VITALS (61 sets, daily range): BP systolic 78–205; BP diastolic 43–93
[2019-03-09] MEDS: ACETAMINOPHEN 325 MG TABLET PO SCH ×3 (03:28→18:01)
[2019-03-09] MEDS: HYDROMORPHONE 2 MG/1 ML DISP.SYRIN IV PRN ×5 (03:38→22:20)
--- NOTE | 2019-03-09 04:00 | NUR ---
refused am care.
[2019-03-09] MEDS: CLONIDINE HCL 0.3 MG TABLET PO SCH ×3 (05:24→22:16)
[2019-03-09 05:26] LABS: BASOPHILS # (AUTO) 0.1 K/uL (0.0-8.0); BASOPHILS % (AUTO) 0.8 % (0.0-2.0); EOSINOPHILS % (AUTO) 0.5 % (0.0-7.0); HEMATOCRIT 32.9 % (36.7-47.1); HEMOGLOBIN 10.7 g/dL (12.5-16.3); LYMPHOCYTES # (AUTO) 1.3 K/uL (20.0-40.0); LYMPHOCYTES % (AUTO) 19.2 % (20.5-51.5); MEAN CORPUSCULAR HEMOGLOBIN 28.3 uug (23.8-33.4); MEAN CORPUSCULAR HGB CONC 32 g/dL (32.5-36.3); MEAN CORPUSCULAR VOLUME 87.3 fL (73.0-96.2); MONOCYTES # (AUTO) 0.6 K/uL (2.0-10.0); MONOCYTES % (AUTO) 9.2 % (0.0-11.0); NEUTROPHILS # (AUTO) 4.8 K/uL (1.8-8.9); NEUTROPHILS % (AUTO) 70.3 % (38.5-71.5); PLATELET COUNT (AUTO) 115 K/uL (152-348); RED BLOOD CELL COUNT(AUTO) 3.77 MIL/uL (4.06-5.63); WHITE BLOOD COUNT (AUTO) 6.8 K/uL (3.6-10.2)
[2019-03-09 05:47] LABS: PHOSPHOROUS 4.2 mg/dL (2.5-4.9); POTASSIUM 5.7 mmol/L (3.5-5.1)
[2019-03-09 06:10] LABS: CREATININE 9.4 mg/dL (0.6-1.3)
[2019-03-09] MEDS: PANTOPRAZOLE SODIUM 40 MG TABLET.DR PO SCH (06:47)
--- NOTE | 2019-03-09 07:30 | NUR ---
Report received from ADENIKE Hicks.Pt remains awake,alert.HD in progress.Pt remains on cardene gtt at 5mg/hr to maintain SBP below 160.Will continue to monitor.
[2019-03-09] MEDS: BLOOD SUGAR DIAGNOSTIC 1 EACH STRIP VI SCH ×4 (09:18→20:13)
[2019-03-09] MEDS: NORMAL SALINE IV PRN (09:19)
[2019-03-09] MEDS: NICARDIPINE HCL IV PRN (09:19)
[2019-03-09] MEDS: FUROSEMIDE 40 MG TABLET PO SCH ×2 (09:40→17:55)
[2019-03-09] MEDS: VALSARTAN 160 MG TABLET PO SCH ×2 (09:41→20:21)
[2019-03-09] MEDS: MINOXIDIL 2.5 MG TABLET PO SCH ×2 (09:42→20:29)
[2019-03-09] MEDS: SERTRALINE HCL 100 MG TABLET PO SCH (09:42)
[2019-03-09] MEDS: CARVEDILOL 25 MG TABLET PO SCH ×2 (09:43→17:50)
[2019-03-09] MEDS: CHOLECALCIFEROL 1,000 UNIT TABLET PO SCH (09:43)
[2019-03-09] MEDS: SEVELAMER CARBONATE 800 MG TABLET PO SCH ×3 (09:44→17:50)
[2019-03-09] MEDS: CITRIC ACID/SODIUM CITRATE 30 ML SOLUTION PO SCH (09:44)
[2019-03-09] MEDS: CALCIUM ACETATE 667 MG CAPSULE PO SCH ×3 (09:47→17:51)
[2019-03-09] MEDS: NIFEdipine XL 90 MG TABSR PO SCH (09:48)
[2019-03-09] MEDS: hydrALAZINE HCL 50 MG TABLET PO SCH ×3 (09:50→18:01)
[2019-03-09] MEDS: ATROPINE SULFATE 1% OPHT DROP 2 ML RIGHTEYE SCH ×2 (09:51→17:53)
[2019-03-09] MEDS: BRIMONIDINE 0.2% OPHT DROP 10 ML BOTTLE RIGHTEYE SCH ×3 (09:51→17:56)
[2019-03-09] MEDS: prednisoLONE ACET 1% OPHT DROP 5 ML BOTTLE RIGHTEYE SCH ×4 (09:52→20:28)
[2019-03-09] MEDS: DORZOLAMIDE/TIMOLOL OPHT DROP 10 ML BOTTLE RIGHTEYE SCH ×2 (09:52→20:29)
[2019-03-09] MEDS: LATANOPROST OPHT DROP 2.5 ML BOTTLE RIGHTEYE SCH (09:53)
[2019-03-09] MEDS: OPTH RIGHTEYE SCH ×3 (09:55→17:52)
[2019-03-09] MEDS: OFLOXACIN 0.3% RIGHTEYE SCH ×3 (09:55→17:52)
[2019-03-09] MEDS ORDERED: MINERAL OIL FLEET ENEMA 133 ML BOTTLE RC PRN (10:45)
[2019-03-09] MEDS ORDERED: MIRALAX 17 GM POWD.PACK PO PRN (10:45)
[2019-03-09] MEDS: INSULIN REGULAR, HUMAN 300 UNIT/3 ML VIAL SQ PRN ×3 (14:34→20:16)
--- NOTE | 2019-03-09 18:49 | NUR ---
Pt c/o pain at Right eye.Medicated with Dilaudid 2 mg IV as ordered.Cardene gtt is off.will continue to monitor.Seen,examined by .
--- NOTE | 2019-03-09 20:00 | NUR ---
RECEIVED PT. ALERT & ORIENTED X4. MIDLINE INTACT & PATENT ON WAI. DENIES PAIN. NOT IN NAY DISTRESS.
--- NOTE | 2019-03-09 20:00 | NUR ---
RECEIVED PT RESPONDING TO DEEP PAINFUL STIMULI. TRACH TO VENT W/ SETTINGS OF AC-12, TV-500, FIO2-50%, PEEP-+5 W/ O2 SAT OF 99%. IVF NS @ 80CC/HR. ON LEVOPHED DRIP @ 18CC/HR VIA TLC ON LEFT SUBCLAVIAN. G-TUBE INTACT & CLAMPED.SUCTIONED VIA TRACH & OROPHARYNGEALLY W/ THICK WHITISH MODERATE AMT. OF MUCOUS. REPOSITIONED ON HER SIDE W/ HOB ELEVATED. Addendum: 03/10/19 at 0153 by PAMELA VALENTIN RN CHARTING IS ERROR.
[2019-03-09] MEDS ORDERED: NICARDIPINE IV ONE (20:18)
[2019-03-09] MEDS ORDERED: SODIUM CHLORIDE IV ONE (20:18)
[2019-03-09] MEDS: ATORVASTATIN 40 MG TABLET PO SCH (20:20)
[2019-03-09] MEDS: DOXAZOSIN 2 MG TABLET PO SCH (20:20)
[2019-03-09] MEDS: NETARSUDIL 0.02% RIGHTEYE SCH (20:28)
[2019-03-09] MEDS: OFLOXACIN OPTH RIGHTEYE SCH (21:00)
--- NOTE | 2019-03-09 21:00 | NUR ---
REFUSED HS CARE.
[2019-03-10] VITALS (18 sets, daily range): BP systolic 96–166; BP diastolic 54–95
[2019-03-10] MEDS: ACETAMINOPHEN 325 MG TABLET PO SCH ×3 (02:53→17:12)
[2019-03-10] MEDS: HYDROMORPHONE 2 MG/1 ML DISP.SYRIN IV PRN ×5 (02:58→22:40)
[2019-03-10] MEDS: HYDROCODONE/APAP 10-325 MG TABLET PO PRN (04:49)
[2019-03-10 05:03] LABS: BASOPHILS # (AUTO) 0.1 K/uL (0.0-8.0); BASOPHILS % (AUTO) 0.9 % (0.0-2.0); EOSINOPHILS % (AUTO) 0.5 % (0.0-7.0); HEMATOCRIT 32.2 % (36.7-47.1); HEMOGLOBIN 10.4 g/dL (12.5-16.3); LYMPHOCYTES # (AUTO) 1.2 K/uL (20.0-40.0); LYMPHOCYTES % (AUTO) 19.8 % (20.5-51.5); MEAN CORPUSCULAR HEMOGLOBIN 28.2 uug (23.8-33.4); MEAN CORPUSCULAR HGB CONC 32 g/dL (32.5-36.3); MEAN CORPUSCULAR VOLUME 87.4 fL (73.0-96.2); MONOCYTES # (AUTO) 0.5 K/uL (2.0-10.0); MONOCYTES % (AUTO) 8.3 % (0.0-11.0); NEUTROPHILS # (AUTO) 4.4 K/uL (1.8-8.9); NEUTROPHILS % (AUTO) 70.5 % (38.5-71.5); PLATELET COUNT (AUTO) 108 K/uL (152-348); RED BLOOD CELL COUNT(AUTO) 3.68 MIL/uL (4.06-5.63); WHITE BLOOD COUNT (AUTO) 6.3 K/uL (3.6-10.2)
--- NOTE | 2019-03-10 05:08 | NUR ---
REFUSED AM CARE. QUE NEFF REMAINS OFF.
[2019-03-10 05:14] LABS: MAGNESIUM 1.7 mg/dL (1.8-2.4); PHOSPHOROUS 3.6 mg/dL (2.5-4.9); POTASSIUM 5.2 mmol/L (3.5-5.1)
[2019-03-10] MEDS: CLONIDINE HCL 0.3 MG TABLET PO SCH ×3 (05:46→22:26)
[2019-03-10 06:08] LABS: CREATININE 7.5 mg/dL (0.6-1.3)
[2019-03-10] MEDS: PANTOPRAZOLE SODIUM 40 MG TABLET.DR PO SCH (06:29)
[2019-03-10] MEDS: BLOOD SUGAR DIAGNOSTIC 1 EACH STRIP VI SCH ×4 (08:06→20:43)
[2019-03-10] MEDS: CHOLECALCIFEROL 1,000 UNIT TABLET PO SCH (08:23)
[2019-03-10] MEDS: CALCIUM ACETATE 667 MG CAPSULE PO SCH ×3 (08:24→17:06)
[2019-03-10] MEDS: VALSARTAN 160 MG TABLET PO SCH ×2 (08:24→20:32)
[2019-03-10] MEDS: SEVELAMER CARBONATE 800 MG TABLET PO SCH ×3 (08:24→17:07)
[2019-03-10] MEDS: MINOXIDIL 2.5 MG TABLET PO SCH ×2 (08:25→20:33)
[2019-03-10] MEDS: NIFEdipine XL 90 MG TABSR PO SCH (08:26)
[2019-03-10] MEDS: SERTRALINE HCL 100 MG TABLET PO SCH (08:26)
[2019-03-10] MEDS: FUROSEMIDE 40 MG TABLET PO SCH ×2 (08:26→17:07)
[2019-03-10] MEDS: CITRIC ACID/SODIUM CITRATE 30 ML SOLUTION PO SCH (08:26)
[2019-03-10] MEDS: hydrALAZINE HCL 50 MG TABLET PO SCH ×3 (08:29→17:07)
[2019-03-10] MEDS: INSULIN REGULAR, HUMAN 300 UNIT/3 ML VIAL SQ PRN ×4 (08:36→20:45)
[2019-03-10] MEDS: CARVEDILOL 25 MG TABLET PO SCH ×2 (08:40→17:07)
[2019-03-10] MEDS: LATANOPROST OPHT DROP 2.5 ML BOTTLE RIGHTEYE SCH (08:40)
[2019-03-10] MEDS: ATROPINE SULFATE 1% OPHT DROP 2 ML RIGHTEYE SCH ×2 (08:41→17:09)
[2019-03-10] MEDS: prednisoLONE ACET 1% OPHT DROP 5 ML BOTTLE RIGHTEYE SCH ×4 (08:41→20:35)
[2019-03-10] MEDS: BRIMONIDINE 0.2% OPHT DROP 10 ML BOTTLE RIGHTEYE SCH ×3 (08:41→17:08)
[2019-03-10] MEDS: DORZOLAMIDE/TIMOLOL OPHT DROP 10 ML BOTTLE RIGHTEYE SCH ×2 (08:41→20:33)
[2019-03-10] MEDS: OFLOXACIN OPTH RIGHTEYE SCH ×4 (08:42→20:46)
--- NOTE | 2019-03-10 13:02 | NUR ---
Pt ran out of Ofloxacin eye drops. Sister made aware and to bring more for pharmacy. Pharmacy also made aware.
--- NOTE | 2019-03-10 16:00 | NUR ---
Pt transferred via wheelchair to room 315-TD and full SBAR report given to ADENIKE Cornelius. Pt stable and nad noted upon transfer.
[2019-03-10] MEDS ORDERED: MAGNESIUM SULFATE/D5W 100 ML IV SCH (16:15)
--- NOTE | 2019-03-10 17:18 | NUR ---
ofloxaxine eye drop not available
--- NOTE | 2019-03-10 20:00 | NUR ---
Received patient lying in bed. AAOX4. In no acute distress. Denies any SOB or headache at this time. NSR on tele at 72/min. Midline on right upper arm intact and patent. Needs assessed and attended to. Safety measure initiated and call forde within reached.
[2019-03-10] MEDS: ATORVASTATIN 40 MG TABLET PO SCH (20:33)
[2019-03-10] MEDS: DOXAZOSIN 2 MG TABLET PO SCH (20:33)
[2019-03-10] MEDS: NETARSUDIL 0.02% RIGHTEYE SCH (20:34)
[2019-03-11] VITALS: BP 145/82
[2019-03-11] MEDS: ACETAMINOPHEN 325 MG TABLET PO SCH ×3 (02:02→18:15)
--- NOTE | 2019-03-11 02:10 | NUR ---
PATIENT GIVEN HIS ROUTINE TYLENOL 650MG PO PER ORDER. COMPLAINING OF HEADACHE. BP CHECKED AND OBTAIN 167/86, HR 77. RECHECKED AND WAS 169/84, HR 76. NSR ON TELE AT 77/MIN. PATIENT DENIES ANY DIZZINESS. NO SOB. GLOVE WRAPPER PAGED DR KINNEY, AWAITING FOR RETURN CALL. CONTINUE TO MONITOR PATIENT.
--- NOTE | 2019-03-11 02:35 | NUR ---
CALL EXCHANGE AND HAD DR HALL PAGED AGAIN. AWAITING FOR CALL BACK. PATIENT REMAINS AAOX4. IN NO ACUTE DISTRESS. CONTINUE TO DENY ANY DIZZINESS OR CHANGE IN VISION. CONTINUE TO MONITOR.
--- NOTE | 2019-03-11 03:00 | NUR ---
CALLED EXCHANGE AGAIN STILL AWAITING FOR DR. HALL RETURN CALL. REQUEST FOR EXCHANGE TO ALSO PAGE DR. FORMAN, REGARDING SAME ISSUE. AWAITING FOR RETURN CALL
--- NOTE | 2019-03-11 03:20 | NUR ---
CALLED EXCHANGE AGAIN AND REQUESTED TO HAVE DR. YODER PAGED SINCE, DR. HALL AND DR FORMAN HAS NOT REPLY BACK. AIR SHOVEL OPERATOR PAGED DR YODER. AWAITING FOR REPLY. RECHECK PATIENT BP, NOW 180/93, HR 78. STILL NSR ON TELE. PATIENT CONTINUE TO DENY ANY DIZZINESS OR CHANGES IN VISION. REPORTED MODERATE HEADACHE AND PAIN ON RIGHT SIDE OF FACE. IN NO ACUTE DISTRESS. CONTINUE TO MONITOR.
[2019-03-11] MEDS: HYDROMORPHONE 2 MG/1 ML DISP.SYRIN IV PRN ×4 (03:39→21:29)
--- NOTE | 2019-03-11 03:50 | NUR ---
DILAUDID GIVEN AT 0339 FOR COMPLAIN OF RIGHT SIDED EYE PAIN AND RIGHT SIDED HEADACHE. RECHECK BP AT 0350 AND WENT DOWN TO 163/82, HR 80. SPOKE TO DR FORMAN AND INFORMED OF PATIENT CURRENT CONDITION. GAVE ORDER TO START PATIENT ON CLONIDINE 0.2MG PO Q6HRS PRN FOR SBP GREATER THAN 160. ORDER READ BACK AND VERIFIED.
[2019-03-11 04:00] VITALS: BP 166/80
[2019-03-11] MEDS ORDERED: CLONIDINE HCL 0.2 MG TABLET PO PRN (04:00)
[2019-03-11] MEDS: CLONIDINE HCL 0.3 MG TABLET PO SCH ×3 (05:25→23:09)
[2019-03-11] MEDS: PANTOPRAZOLE SODIUM 40 MG TABLET.DR PO SCH (06:11)
--- NOTE | 2019-03-11 06:23 | NUR ---
AAOX4. In no acute distress. Denies any SOB or pain. Headache tolerable at this time. Denies any dizziness. NSR on tele at 80/min. Midline on right upper arm intact and patent. Needs attended to and met. Safety measure maintained and call forde within reached.
[2019-03-11] MEDS: BLOOD SUGAR DIAGNOSTIC 1 EACH STRIP VI SCH ×6 (06:32→22:39)
[2019-03-11] MEDS: CARVEDILOL 25 MG TABLET PO SCH ×2 (06:34→18:00)
[2019-03-11 07:20] LABS: BASOPHILS # (AUTO) 0.1 K/uL (0.0-8.0); BASOPHILS % (AUTO) 0.7 % (0.0-2.0); EOSINOPHILS % (AUTO) 0.4 % (0.0-7.0); HEMATOCRIT 33.1 % (36.7-47.1); HEMOGLOBIN 10.7 g/dL (12.5-16.3); LYMPHOCYTES # (AUTO) 1.4 K/uL (20.0-40.0); LYMPHOCYTES % (AUTO) 18.5 % (20.5-51.5); MEAN CORPUSCULAR HEMOGLOBIN 28.5 uug (23.8-33.4); MEAN CORPUSCULAR HGB CONC 32 g/dL (32.5-36.3); MEAN CORPUSCULAR VOLUME 88.4 fL (73.0-96.2); MONOCYTES # (AUTO) 0.5 K/uL (2.0-10.0); MONOCYTES % (AUTO) 6.6 % (0.0-11.0); NEUTROPHILS # (AUTO) 5.6 K/uL (1.8-8.9); NEUTROPHILS % (AUTO) 73.8 % (38.5-71.5); PLATELET COUNT (AUTO) 115 K/uL (152-348); RED BLOOD CELL COUNT(AUTO) 3.75 MIL/uL (4.06-5.63); WHITE BLOOD COUNT (AUTO) 7.6 K/uL (3.6-10.2)
[2019-03-11 07:59] VITALS: BP 178/87
[2019-03-11 08:14] LABS: MAGNESIUM 1.8 mg/dL (1.8-2.4); PHOSPHOROUS 3.9 mg/dL (2.5-4.9); POTASSIUM 5.8 mmol/L (3.5-5.1)
[2019-03-11] MEDS: OFLOXACIN OPTH RIGHTEYE SCH ×4 (09:00→21:00)
[2019-03-11] MEDS: CALCIUM ACETATE 667 MG CAPSULE PO SCH ×3 (10:28→18:00)
[2019-03-11] MEDS: SEVELAMER CARBONATE 800 MG TABLET PO SCH ×3 (10:29→18:00)
[2019-03-11] MEDS: hydrALAZINE HCL 50 MG TABLET PO SCH ×3 (10:34→17:00)
[2019-03-11] MEDS: CITRIC ACID/SODIUM CITRATE 30 ML SOLUTION PO SCH (10:34)
[2019-03-11] MEDS: FUROSEMIDE 40 MG TABLET PO SCH ×2 (10:35→17:00)
[2019-03-11] MEDS: CHOLECALCIFEROL 1,000 UNIT TABLET PO SCH (10:36)
[2019-03-11] MEDS: SERTRALINE HCL 100 MG TABLET PO SCH (10:36)
[2019-03-11] MEDS: NIFEdipine XL 90 MG TABSR PO SCH (10:48)
[2019-03-11] MEDS: MINOXIDIL 2.5 MG TABLET PO SCH ×2 (10:48→20:02)
[2019-03-11] MEDS: BRIMONIDINE 0.2% OPHT DROP 10 ML BOTTLE RIGHTEYE SCH ×3 (10:50→18:15)
[2019-03-11] MEDS: ATROPINE SULFATE 1% OPHT DROP 2 ML RIGHTEYE SCH ×2 (10:52→17:00)
[2019-03-11] MEDS: DORZOLAMIDE/TIMOLOL OPHT DROP 10 ML BOTTLE RIGHTEYE SCH ×2 (10:53→21:19)
[2019-03-11] MEDS: prednisoLONE ACET 1% OPHT DROP 5 ML BOTTLE RIGHTEYE SCH ×4 (10:59→21:19)
[2019-03-11] MEDS: LATANOPROST OPHT DROP 2.5 ML BOTTLE RIGHTEYE SCH (10:59)
[2019-03-11] MEDS: VALSARTAN 160 MG TABLET PO SCH ×2 (11:08→20:01)
[2019-03-11 11:48] VITALS: BP 187/95
[2019-03-11] MEDS: HYDROCODONE/APAP 10-325 MG TABLET PO PRN (19:59)
--- NOTE | 2019-03-11 20:00 | NUR ---
AWAKE,ALERT X3 WITH COMPLAINED OF SEVERE HEADACHE,NORCO 10MG GIVEN, AND ALL HIS BP MEDS, PT VOMITED AFTER 30MINUTES
[2019-03-11] MEDS: ATORVASTATIN 40 MG TABLET PO SCH (20:01)
[2019-03-11] MEDS: DOXAZOSIN 2 MG TABLET PO SCH (20:01)
[2019-03-11] MEDS: ONDANSETRON 4 MG/2 ML VIAL IV PRN (20:28)
[2019-03-11 20:50] VITALS: BP 180/90
--- NOTE | 2019-03-11 21:00 | NUR ---
BP STILL HIGH ,190/90 PASCUALE CONSULTING ENGINEER CALLED FR VOMITING AND HIGH BP TTH .2PATCH GIVEN
[2019-03-11] MEDS: NETARSUDIL 0.02% RIGHTEYE SCH (21:18)
[2019-03-11] MEDS ORDERED: CLONIDINE TTS 2 PATCH TD SCH (22:00)
[2019-03-11] MEDS ORDERED: ONDANSETRON INJ 8 MG in IV NORMAL SALINE 50 ML IV PRN (22:15)
[2019-03-11] MEDS: INSULIN REGULAR, HUMAN 300 UNIT/3 ML VIAL SQ PRN (22:30)
[2019-03-11] MEDS ORDERED: CLONIDINE TTS 2 PATCH TD ONE (23:03)
[2019-03-12] VITALS (11 sets, daily range): BP systolic 93–202; BP diastolic 52–98
--- NOTE | 2019-03-12 | NUR ---
BP STILL HIGH 200/[address] FORMAN,
[2019-03-12] MEDS ORDERED: hydrALAZINE HCL 20 MG/1 ML VIAL IV PRN ×2 (00:45→01:00)
--- NOTE | 2019-03-12 01:00 | NUR ---
TOLERATING FUIDS OJ WHITT, RESTING COMFORTABLY
--- NOTE | 2019-03-12 01:15 | NUR ---
HYDRALAZINE GIVEN BP190/90
[2019-03-12] MEDS: HYDROMORPHONE 2 MG/1 ML DISP.SYRIN IV PRN ×5 (01:16→20:40)
--- NOTE | 2019-03-12 01:20 | NUR ---
DILAUDID 2 MG GIVEN FOR SEVERE HEADACHE.
[2019-03-12] MEDS: ACETAMINOPHEN 325 MG TABLET PO SCH ×3 (02:15→17:18)
[2019-03-12] MEDS: ONDANSETRON 4 MG/2 ML VIAL IV PRN ×3 (03:39→20:40)
--- NOTE | 2019-03-12 05:45 | NUR ---
NO FURTHER VOMITING NOTED,CATAPRES O.3MG GIVEN
--- NOTE | 2019-03-12 06:00 | NUR ---
right eye red.a little drainage,slleping soundly at this time.,left shunt intact and good bruit.
[2019-03-12] MEDS: PANTOPRAZOLE SODIUM 40 MG TABLET.DR PO SCH (06:04)
[2019-03-12] MEDS: CLONIDINE HCL 0.3 MG TABLET PO SCH ×3 (06:05→22:04)
[2019-03-12] MEDS: BLOOD SUGAR DIAGNOSTIC 1 EACH STRIP VI SCH ×4 (06:06→20:48)
[2019-03-12 06:22] LABS: MAGNESIUM 1.8 mg/dL (1.8-2.4); PHOSPHOROUS 3.6 mg/dL (2.5-4.9); POTASSIUM 5.3 mmol/L (3.5-5.1)
[2019-03-12 06:48] LABS: BASOPHILS # (AUTO) 0.1 K/uL (0.0-8.0); EOSINOPHILS % (AUTO) 0.7 % (0.0-7.0); HEMATOCRIT 34.8 % (36.7-47.1); HEMOGLOBIN 11.4 g/dL (12.5-16.3); LYMPHOCYTES % (AUTO) 14.5 % (20.5-51.5); MEAN CORPUSCULAR HEMOGLOBIN 28.7 uug (23.8-33.4); MEAN CORPUSCULAR HGB CONC 33 g/dL (32.5-36.3); MEAN CORPUSCULAR VOLUME 87.8 fL (73.0-96.2); MONOCYTES # (AUTO) 0.4 K/uL (2.0-10.0); MONOCYTES % (AUTO) 6.6 % (0.0-11.0); NEUTROPHILS # (AUTO) 5.3 K/uL (1.8-8.9); NEUTROPHILS % (AUTO) 77.2 % (38.5-71.5); PLATELET COUNT (AUTO) 123 K/uL (152-348); RED BLOOD CELL COUNT(AUTO) 3.97 MIL/uL (4.06-5.63); WHITE BLOOD COUNT (AUTO) 6.8 K/uL (3.6-10.2)
[2019-03-12] MEDS: CALCIUM ACETATE 667 MG CAPSULE PO SCH ×4 (08:00→17:18)
--- NOTE | 2019-03-12 08:00 | NUR ---
Pt right eye redness noted no discharge noted. Discuss plan of care with pt re: proper pain, nausea, and vomiting, management pt agreeable with plan. Noted bruit on left av shunt. Midline on right upper arm intact no redness noted. Permacath right chest wall inplace no redness noted.
[2019-03-12] MEDS: INSULIN REGULAR, HUMAN 300 UNIT/3 ML VIAL SQ PRN ×4 (08:30→20:50)
[2019-03-12] MEDS: FUROSEMIDE 40 MG TABLET PO SCH ×2 (08:32→17:18)
[2019-03-12] MEDS: SEVELAMER CARBONATE 800 MG TABLET PO SCH ×3 (08:41→17:18)
[2019-03-12] MEDS: CARVEDILOL 25 MG TABLET PO SCH ×2 (08:42→17:19)
[2019-03-12] MEDS: hydrALAZINE HCL 50 MG TABLET PO SCH ×3 (08:42→17:00)
[2019-03-12] MEDS: CHOLECALCIFEROL 1,000 UNIT TABLET PO SCH (08:43)
[2019-03-12] MEDS: NIFEdipine XL 90 MG TABSR PO SCH (08:44)
[2019-03-12] MEDS: SERTRALINE HCL 100 MG TABLET PO SCH (08:44)
[2019-03-12] MEDS: MINOXIDIL 2.5 MG TABLET PO SCH ×2 (08:44→20:42)
[2019-03-12] MEDS: CITRIC ACID/SODIUM CITRATE 30 ML SOLUTION PO SCH (08:45)
[2019-03-12] MEDS: VALSARTAN 160 MG TABLET PO SCH ×2 (08:45→21:59)
[2019-03-12] MEDS: DORZOLAMIDE/TIMOLOL OPHT DROP 10 ML BOTTLE RIGHTEYE SCH ×2 (08:46→15:24)
[2019-03-12] MEDS: BRIMONIDINE 0.2% OPHT DROP 10 ML BOTTLE RIGHTEYE SCH ×3 (08:46→17:31)
[2019-03-12] MEDS: prednisoLONE ACET 1% OPHT DROP 5 ML BOTTLE RIGHTEYE SCH ×3 (08:47→17:31)
[2019-03-12] MEDS: ATROPINE SULFATE 1% OPHT DROP 2 ML RIGHTEYE SCH ×2 (08:47→17:32)
[2019-03-12] MEDS: LATANOPROST OPHT DROP 2.5 ML BOTTLE RIGHTEYE SCH (08:47)
[2019-03-12] MEDS: OFLOXACIN OPTH RIGHTEYE SCH ×3 (08:59→17:00)
--- NOTE | 2019-03-12 09:00 | NUR ---
Pt alert and oriented x 4. Elevated SBP @ 200 gave all b/p meds. Notified SOLID WASTE ANALYST baldomero huang. Dr Sultana to adjust b/p meds awaiting new orders.
[2019-03-12] MEDS ORDERED: MINOXIDIL 2.5 MG TABLET PO ONE (12:15)
[2019-03-12] MEDS: SPIRONOLACTONE 50 MG TABLET PO SCH (12:31)
--- NOTE | 2019-03-12 17:32 | NUR ---
Ofloxicin eyedrop , pts own meds, not available pt states that eye drop will be received from his sister tomorrow.
--- NOTE | 2019-03-12 18:00 | NUR ---
Strap Stitcher, DR [place] with temporary privilege saw patient and evaluated pts right eye. Per Dr washington pt is ok to be discharge home if cleared by weekend caregiver. Pt is in no acute distress. Call light is within reach.
--- NOTE | 2019-03-12 18:49 | NUR ---
Dr fuentes saw patient noted SPB of 105. No new order received. Pt comfortable in bed. Pt is in no acute distress.
--- NOTE | 2019-03-12 19:20 | NUR ---
Received patient lying in bed. AAOX4. In no acute distress. NSR on tele at 75/min. Midline on right upper arm intact and patent. Per a cath on right upper chest. AV shunt on left FA. Denies any SOB. With mild headache at this time but tolerable per pt. Safety measure initiated and call forde within reached.
[2019-03-12] MEDS: NETARSUDIL 0.02% RIGHTEYE SCH (20:40)
[2019-03-12] MEDS: DOXAZOSIN 2 MG TABLET PO SCH (20:41)
[2019-03-12] MEDS: ATORVASTATIN 40 MG TABLET PO SCH (20:42)
--- NOTE | 2019-03-12 21:20 | NUR ---
Dialysis nurse present to dialyze patient.
--- NOTE | 2019-03-12 23:41 | NUR ---
Dialysis done with 2500ml out.
[2019-03-13 00:38] VITALS: BP 134/67
[2019-03-13] MEDS: ACETAMINOPHEN 325 MG TABLET PO SCH ×2 (01:29→09:26)
[2019-03-13] MEDS: CLONIDINE HCL 0.3 MG TABLET PO SCH ×2 (06:00→13:49)
[2019-03-13] MEDS: PANTOPRAZOLE SODIUM 40 MG TABLET.DR PO SCH (07:00)
[2019-03-13] MEDS: BLOOD SUGAR DIAGNOSTIC 1 EACH STRIP VI SCH ×2 (07:30→12:18)
[2019-03-13 07:58] LABS: EOSINOPHILS % (AUTO) 0.6 % (0.0-7.0); HEMATOCRIT 33.9 % (36.7-47.1); HEMOGLOBIN 10.9 g/dL (12.5-16.3); LYMPHOCYTES # (AUTO) 1.6 K/uL (20.0-40.0); LYMPHOCYTES % (AUTO) 29.6 % (20.5-51.5); MEAN CORPUSCULAR HEMOGLOBIN 28.4 uug (23.8-33.4); MEAN CORPUSCULAR HGB CONC 32 g/dL (32.5-36.3); MONOCYTES # (AUTO) 0.4 K/uL (2.0-10.0); MONOCYTES % (AUTO) 7.7 % (0.0-11.0); NEUTROPHILS # (AUTO) 3.4 K/uL (1.8-8.9); NEUTROPHILS % (AUTO) 62.1 % (38.5-71.5); PLATELET COUNT (AUTO) 135 K/uL (152-348); POTASSIUM 4.9 mmol/L (3.5-5.1); RED BLOOD CELL COUNT(AUTO) 3.85 MIL/uL (4.06-5.63); WHITE BLOOD COUNT (AUTO) 5.5 K/uL (3.6-10.2)
--- NOTE | 2019-03-13 08:30 | NUR ---
Pt meds taken out by police shift commander.
[2019-03-13] MEDS ORDERED: ATROPINE SULFATE 1% OPHT DROP 2 ML RIGHTEYE SCH (09:00)
[2019-03-13] MEDS: FUROSEMIDE 40 MG TABLET PO SCH (09:25)
[2019-03-13] MEDS: hydrALAZINE HCL 50 MG TABLET PO SCH ×2 (09:26→12:06)
[2019-03-13] MEDS: CALCIUM ACETATE 667 MG CAPSULE PO SCH ×2 (09:26→12:08)
[2019-03-13] MEDS: CARVEDILOL 25 MG TABLET PO SCH (09:26)
[2019-03-13] MEDS: CHOLECALCIFEROL 1,000 UNIT TABLET PO SCH (09:27)
[2019-03-13] MEDS: SPIRONOLACTONE 50 MG TABLET PO SCH (09:27)
[2019-03-13] MEDS: SERTRALINE HCL 100 MG TABLET PO SCH (09:27)
[2019-03-13] MEDS: SEVELAMER CARBONATE 800 MG TABLET PO SCH ×2 (09:27→12:03)
[2019-03-13] MEDS: NIFEdipine XL 90 MG TABSR PO SCH (09:27)
[2019-03-13] MEDS: VALSARTAN 160 MG TABLET PO SCH (09:28)
[2019-03-13] MEDS: CITRIC ACID/SODIUM CITRATE 30 ML SOLUTION PO SCH (09:28)
[2019-03-13] MEDS: BRIMONIDINE 0.2% OPHT DROP 10 ML BOTTLE RIGHTEYE SCH ×2 (09:34→12:07)
[2019-03-13] MEDS: DORZOLAMIDE/TIMOLOL OPHT DROP 10 ML BOTTLE RIGHTEYE SCH (09:34)
[2019-03-13] MEDS: LATANOPROST OPHT DROP 2.5 ML BOTTLE RIGHTEYE SCH (09:34)
[2019-03-13] MEDS: INSULIN REGULAR, HUMAN 300 UNIT/3 ML VIAL SQ PRN ×2 (09:36→12:19)
[2019-03-13] MEDS: prednisoLONE ACET 1% OPHT DROP 5 ML BOTTLE RIGHTEYE SCH ×2 (09:37→12:07)
[2019-03-13] MEDS: MINOXIDIL 2.5 MG TABLET PO SCH (09:49)
[2019-03-13] MEDS: ONDANSETRON 4 MG/2 ML VIAL IV PRN (11:55)
[2019-03-13] MEDS: HYDROMORPHONE 2 MG/1 ML DISP.SYRIN IV PRN (11:56)
[2019-03-13] MEDS ORDERED: NIFE30TA91 PO (12:05)
[2019-03-13] MEDS ORDERED: HYDR-3326 PO (12:05)
[2019-03-13] MEDS ORDERED: MINO10TA PO (12:05)
[2019-03-13] MEDS ORDERED: VALS160T2 PO ×2 (12:05)
[2019-03-13] MEDS ORDERED: DOXA2TAB2 PO (12:05)
[2019-03-13] MEDS ORDERED: SPIR50TA5 PO (12:05)
[2019-03-13] MEDS ORDERED: CLON0.3T PO (12:05)
[2019-03-13 12:13] VITALS: BP 122/67
--- NOTE | 2019-03-13 13:50 | NUR ---
Pt is having dialysis
--- NOTE | 2019-03-13 16:20 | NUR ---
Pt discharge instructions given to patient. Educated pt about s/s of new meds and its purpose. Pt states he will ask further questions if needed from the pharmacy he goes to. Pt refused to have pharmacy talk to him about new meds. Pt will follow up with own primary doctor for his vaccinations. Midline discontinued and covered with 4x4 gauze. Pt is in no acute distress. Call light is within reach.
== END 2019-03-13 16:20 | disposition home or self-care (01) | DRG 304 ==
LOC: ER 18:26 → TELE3 21:48 → CCU 03-01 00:43 → TELE-TD3 03-10 15:55 → TELE3 03-11 16:20 → MEDSURG3 03-13 08:20
PROVIDERS: ADMIT Nurse Practitioner Acute Care; ATTEND Nurse Practitioner Acute Care
PROC: 5A1D70Z Performance of Urinary Filtration, Intermittent, Less than 6 Hours Per Day (ICD-10-PCS; principal; 2019-03-01)
PROC: 05HB33Z Insertion of Infusion Device into Right Basilic Vein, Percutaneous Approach (ICD-10-PCS; 2019-03-06)
PROC: 3E033GC Introduction of Other Therapeutic Substance into Peripheral Vein, Percutaneous Approach (ICD-10-PCS; 2019-03-06)
DX: I16.1 Hypertensive emergency (principal); N18.6 End stage renal disease; I50.33 Acute on chronic diastolic (congestive) heart failure; H33.21 Serous retinal detachment, right eye; E44.1 Mild protein-calorie malnutrition; E44.0 Moderate protein-calorie malnutrition; I13.2 Hypertensive heart and chronic kidney disease with heart failure and with stage 5 chronic kidney disease, or end stage renal disease; Z99.2 Dependence on renal dialysis; E11.22 Type 2 diabetes mellitus with diabetic chronic kidney disease; Z79.4 Long term (current) use of insulin; E78.5 Hyperlipidemia, unspecified; I50.9 Heart failure, unspecified; Z87.891 Personal history of nicotine dependence; Z79.899 Other long term (current) drug therapy; F32.9 Major depressive disorder, single episode, unspecified; Z95.828 Presence of other vascular implants and grafts; H57.11 Ocular pain, right eye; I27.20 Pulmonary hypertension, unspecified; E87.5 Hyperkalemia; E83.42 Hypomagnesemia; I07.1 Rheumatic tricuspid insufficiency; D69.6 Thrombocytopenia, unspecified; D63.8 Anemia in other chronic diseases classified elsewhere; K59.00 Constipation, unspecified
CPT/HCPCS: 36415; 70030-TC; 71045; 83735; 84100; 85025; 86704; 86706; 87340; 90937; 93005; 93307; A4663; G0378; G0480-TC; J0360; J1170; J1815; J2270; J2405; J2650; J3475; J3490; J7050